=== PATIENT | male | born 1945 | race Caucasian/White ===

== ENCOUNTER → 2020-06-25 10:03 | Outpatient (CLI) | payer MEDICARE, BC, OTHER, SELFPAY ==
--- NOTE | 2020-06-25 10:13 | DI.RAD.S_ITS ---
PROCEDURE: FL BARIUM SWALLOW W SPEECH INDICATIONS: Dysphagia, unspecified COMPARISON: None. TECHNIQUE: Examination was conducted in conjunction with speech pathology per standard protocol. In the lateral projection, filming was performed of the patient swallowing. AP projection filming may also be performed with patient swallowing. COMPARISON: FINDINGS: Function: The oral preparatory phase appears normal, with proper containment. The subsequent oral propulsive phase, pharyngeal phase, and esophageal phase of swallowing also appear normal with all proffered substances. No laryngotracheal penetration or aspiration. No pathologic vallecular pooling. Morphology: There is a relatively prominent cricopharyngeal bar identified at an axial level above that of the C5-6 disc level where relatively prominent anterior projecting endplate osteophytes can be such seen. The cricopharyngeus bar is ventral to the C5 vertebral body, and did not demonstrate delay in transit of a barium tablet passed this area subsequently during the examination.. No cervical esophageal webs. No Zenker's diverticulum. No strictures. IMPRESSION: No penetration or aspiration seen. 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 Relatively prominent anterior projecting osteophytes from the C5-C6 intervertebral endplates. These do not produce a mechanical delay in transit of either fluid or the barium tablet passed these 2 areas into the more inferior esophagus and gastric lumen. Please also refer to the dedicated speech therapy swallowing evaluation report, which will be independently generated. Dictated by: Artie Berry M.D. on 06/25/2020 at 13:23 Approved by: Artie Berry M.D. on 06/25/2020 at 13:26
--- NOTE | 2020-06-25 15:46 | ST.SWALLOW ---
Visit Care Team Role Provider Type Samantha Hou DO Attending Provider Non-Staff Referring Provider Specialty: Family Practice Address: [address] [place] [address], [place], [address] Email: Modified Barium Swallow Study BLENDER Modified Barium Swallow Study Start: 06/25/20 11:09 Freq: Status: Active Protocol: Document 06/25/20 11:09 LUIS ALBERTO (Rec: 06/25/20 11:18 LUIS ALBERTO [id number]) Modified Barium Swallow Study Total Time Visit Start Time 10:30 Visit Stop Time 11:00 Total Visit Minutes 30 Referral Referring Physician Samantha Hou DO Reason for Referral Dysphagia Setting Setting Outpatient Care Patient Information Identification Type Name,ID Card Patient History The pt is a 75-yr-old male with complaints of 5 or more episodes of aspiration of pills and occasionally solids over the last 4 years. In one episode, the pill enlarged and burned in his throat and the pt felt he might . He feels that his swallow function is generally declining. He has noticed increased difficulty if he is talking and so attempts not to do that. He also has employed chin tuck, per MD recommendation, with some success. Subjective Observations The pt arrived on time, self- ambulating, and provided case history. He followed all directions as instructed. Patient Positioning Position View Lat-A/P Imaging Lateral View Textures Administered Trials Presented Thin Liquid via Spoon,Thin Liquid via Cup,[place] Liquid via Spoon,[place] Liquid via Cup,Honey Liquid via Spoon, Dysphagia Blenderized Textures ,Regular Textures Oral Phase Source: MBSIMP (TM) (C) Bolus Specific Scoring Grid Lip Closure No Impairment (WNL) Tongue Control During Bolus Hold No Impairment (WNL) Bolus Transport/Lingual Motion Minimal Impairment A/P Lingual Propulsion Delay Yes: Occ min lingual rocking to initial a/p propulsion Oral Residue WFL Residue Clearing No Impairment (WNL) Nasal Regurgitation No Additional Oral Phase Observations Oral Peripheral Exam: Symmetrical features WNL of strength, coordination and ROM . Pt has full natural dentition in good condition. He reported occasional TMJ popping/discomfort; does not interfere with mastication nor prevent him from eating desired foods. Mildly reduced elevation of velum observed with sustained and staccato phonation. The pt denies nasal regurgitation, and none was observed. Occasional minimal lingual rocking was observed to initiate a/p transport of bolus. Once initiated, transport was rapid and swallow trigger timely. Otherwise, oral prep and swallow phases are WNL. Pharyngeal Phase Source: MBSIMP (TM) (C) Bolus Specific Scoring Grid Delayed Initiation of Pharyngeal Swallow No Soft Palate Elevation WFL Tongue Base Strength/Range of Motion Mild Impairment Residue Along the Tongue Base Yes: Trace Clearance of Residue Along Tongue Base WFL Laryngeal Elevation No Impairment (WNL) Anterior Hyoid Movement No Impairment (WNL) Epiglottic Range of Motion Mild Impairment Vallecular Residue Yes: Trace to mild Clearance of Vallecular Residue Mild Impairment Laryngeal Vestibular Closure No Impairment (WNL) Pharyngeal Stripping Wave Mild Impairment Posterior Pharyngeal Wall Residue No Upper Esophageal Sphincter Opening Minimal Impairment Residue in the Pyriform Sinuses Yes: Trace Clearance of Residue in the Pyriform WFL Sinuses Esophageal Clearance Upright Position No Impairment (WNL) Pharyngoesophageal Backflow Observed No Additional Pharyngeal Phase Observations No laryngeal penetration or tracheal aspiration was observed. Trace to mild residue at vallecula resulted from mild base of tongue and pharyngeal constrictor weakness, as well as reduced epiglottic inversion with liquid boluses (inversion at or just beyond horizontal displacement). With increased bolus bulk, epiglottic inversion and pharyngeal clearance improved. 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 A/P View Textures Administered Trials Presented [place] Liquid via Cup, Dysphagia Blenderized Textures ,Barium Tablet A/P View Observations Pharyngeal Contraction No Impairment (WNL) Esophageal Clearance Upright Position No Impairment (WNL) Clinical Impressions Dysphagia Type Swallow WNL Findings The pt presents with swallow within normal limits for age. Mildly reduced strength of swallow musculature resulted in occasionally slowed a/p propulsion in the oral cavity, incomplete epiglottic inversion with liquids, and trace to mild amounts of pharyngeal residue. 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 The airway was well protected during all trials in this controlled environment. Suspect episodes of aspiration experienced by the pt result from swallow fatigue and/or distractions (e.g., talking during consumption). Recommend the pt minimize distractions with all oral intake, follow general aspiration precautions, and trial breaking/crushing pills and/or using a carrier. If non-pill forms of medication are available (e.g., liquid, gummy, or topical), these may be good options for this patient. If the pt does not experience improved safety after following these recommendations, outpatient therapy may be warranted to target exercises to strengthen swallow musculature. The pt was informed of these recommendations and in agreement with contacting his PCP for referral to outpatient therapy if symptoms do not subside. Rehabilitation Potential Excellent Patient Appropriate for Therapy No Recommendations Diet Liquids Order Thin Diet Order Regular Medication Recommendation Whole in Carrier,Crushed in Carrier Aspiration Precautions Recommended Precautions Upright at 90 Degrees,Small Bites/Sips,Effortful Swallow Treatment Plan Additional Therapy Recommendations Outpatient therapy if above recommendations do not suffice. Compensatory Strategies Recommendations Sitting Upright (90 deg), Double Swallow
--- NOTE | 2020-06-25 15:51 | ST.SWALLOW ---
Visit Care Team Role Provider Type Samantha Hou DO Attending Provider Non-Staff Referring Provider Specialty: Family Practice Address: [address] [place] [address], [place], [address] Email: Modified Barium Swallow Study OPERATIONS AGENT Modified Barium Swallow Study Start: 06/25/20 11:09 Freq: Status: Active Protocol: Document 06/25/20 11:09 LUIS ALBERTO (Rec: 06/25/20 11:18 LUIS ALBERTO [id number]) Modified Barium Swallow Study Total Time Visit Start Time 10:30 Visit Stop Time 11:00 Total Visit Minutes 30 Referral Referring Physician Samantha Hou DO Reason for Referral Dysphagia Setting Setting Outpatient Care Patient Information Identification Type Name,ID Card Patient History The pt is a 75-yr-old male with complaints of 5 or more episodes of aspiration of pills and occasionally solids over the last 4 years. In one episode, the pill enlarged and burned in his throat and the pt felt he might . He feels that his swallow function is generally declining. He has noticed increased difficulty if he is talking and so attempts not to do that. He also has employed chin tuck, per MD recommendation, with some success. Subjective Observations The pt arrived on time, self- ambulating, and provided case history. He followed all directions as instructed. Patient Positioning Position View Lat-A/P Imaging Lateral View Textures Administered Trials Presented Thin Liquid via Spoon,Thin Liquid via Cup,[place] Liquid via Spoon,[place] Liquid via Cup,Honey Liquid via Spoon, Dysphagia Blenderized Textures ,Regular Textures Oral Phase Source: MBSIMP (TM) (C) Bolus Specific Scoring Grid Lip Closure No Impairment (WNL) Tongue Control During Bolus Hold No Impairment (WNL) Bolus Transport/Lingual Motion Minimal Impairment A/P Lingual Propulsion Delay Yes: Occ min lingual rocking to initial a/p propulsion Oral Residue WFL Residue Clearing No Impairment (WNL) Nasal Regurgitation No Additional Oral Phase Observations Oral Peripheral Exam: Symmetrical features WNL of strength, coordination and ROM . Pt has full natural dentition in good condition. He reported occasional TMJ popping/discomfort; does not interfere with mastication nor prevent him from eating desired foods. Mildly reduced elevation of velum observed with sustained and staccato phonation. The pt denies nasal regurgitation, and none was observed. Occasional minimal lingual rocking was observed to initiate a/p transport of bolus. Once initiated, transport was rapid and swallow trigger timely. Otherwise, oral prep and swallow phases are WNL. Pharyngeal Phase Source: MBSIMP (TM) (C) Bolus Specific Scoring Grid Delayed Initiation of Pharyngeal Swallow No Soft Palate Elevation WFL Tongue Base Strength/Range of Motion Mild Impairment Residue Along the Tongue Base Yes: Trace Clearance of Residue Along Tongue Base WFL Laryngeal Elevation No Impairment (WNL) Anterior Hyoid Movement No Impairment (WNL) Epiglottic Range of Motion Mild Impairment Vallecular Residue Yes: Trace to mild Clearance of Vallecular Residue Mild Impairment Laryngeal Vestibular Closure No Impairment (WNL) Pharyngeal Stripping Wave Mild Impairment Posterior Pharyngeal Wall Residue No Upper Esophageal Sphincter Opening Minimal Impairment Residue in the Pyriform Sinuses Yes: Trace Clearance of Residue in the Pyriform WFL Sinuses Esophageal Clearance Upright Position No Impairment (WNL) Pharyngoesophageal Backflow Observed No Additional Pharyngeal Phase Observations No laryngeal penetration or tracheal aspiration was observed. Trace to mild residue at vallecula resulted from mild base of tongue and pharyngeal constrictor weakness, as well as reduced epiglottic inversion with liquid boluses (inversion at or just beyond horizontal displacement). With increased bolus bulk, epiglottic inversion and pharyngeal clearance improved. 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 A/P View Textures Administered Trials Presented [place] Liquid via Cup, Dysphagia Blenderized Textures ,Barium Tablet A/P View Observations Pharyngeal Contraction No Impairment (WNL) Esophageal Clearance Upright Position No Impairment (WNL) Clinical Impressions Dysphagia Type Swallow WNL Findings The pt presents with swallow within normal limits for age. Mildly reduced strength of swallow musculature resulted in occasionally slowed a/p propulsion in the oral cavity, incomplete epiglottic inversion with liquids, and trace to mild amounts of pharyngeal residue. 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 The airway was well protected during all trials in this controlled environment. Suspect episodes of aspiration experienced by the pt result from swallow fatigue and/or distractions (e.g., talking during consumption). Recommend the pt minimize distractions with all oral intake, follow general aspiration precautions , and trial breaking/crushing pills and/or using a carrier. If non-pill forms of medication are available (e.g. , liquid, gummy, or topical), these may be good options for this patient. If the pt does not experience improved safety after following these recommendations, outpatient therapy may be warranted to target exercises to strengthen swallow musculature. The pt was informed of these recommendations and in agreement with contacting his PCP for referral to outpatient therapy if symptoms do not subside. Rehabilitation Potential Excellent Patient Appropriate for Therapy No Recommendations Diet Liquids Order Thin Diet Order Regular Medication Recommendation Whole in Carrier,Crushed in Carrier Aspiration Precautions Recommended Precautions Upright at 90 Degrees,Small Bites/Sips,Effortful Swallow Treatment Plan Additional Therapy Recommendations Outpatient therapy if above recommendations do not suffice . Compensatory Strategies Recommendations Sitting Upright (90 deg), Double Swallow
== END ==
PROVIDERS: Referring Provider Family Medicine; Visit Provider Family Medicine
DX: R13.10 Dysphagia, unspecified (principal)
CPT/HCPCS: 74230; 92611

== ENCOUNTER 2020-09-07 19:57 | Emergency (ER) | payer MEDICARE, BC, OTHER, SELFPAY ==
[2020-09-07 20:02] VITALS: BP 184/109; O2SAT 98
[2020-09-07 20:15] VITALS: BP 184/109; PULSE 85; RESP 18; TEMP 36.7; O2SAT 99; BMI 28.4
[2020-09-07 20:19] LABS: Add Manual Diff / Slide Review NO; Basophils Absolute Auto 100 /uL (0-100); Basophils Percent Auto 0.6 % (0-2); Eosinophils Absolute Auto 100 /uL (0-450); Eosinophils Percent Auto 1.8 % (2-4); Hematocrit 42.4 % (41-53); Lymphocytes Absolute Auto 2000 /uL (1100-4500); Lymphocytes Percent Auto 23.3 % (25-40); Mean Corpuscular Hemoglobin 29.1 PG (26-34); Mean Corpuscular Volume 88.2 fL (80-100); Monocytes Absolute Auto 900 /uL (0-900); Monocytes Percent Auto 10.6 % (3-14); Neutrophils Absolute Auto 5400 /uL (1500-7000); Neutrophils Percent Auto 63.7 % (50-75); Platelet Count 117 X10^3/uL (150-400); Red Blood Cell Count 4.81 X10^6/uL (4.5-5.9); White Blood Cell Count 8.4 X10^3/uL (4.5-11.0)
[2020-09-07 20:23] LABS: INR 1.1 (0.9-1.3); Prothrombin Time 11.8 SECONDS (10.1-12.7)
[2020-09-07 20:26] LABS: PTT Partial Thromboplastin Tim 29 SECONDS (26.4-36.2)
[2020-09-07 20:28] LABS: Alanine Aminotransferase 27 IU/L (<50); Albumin 4.5 g/dL (3.5-5.0); Albumin Globulin Ratio 1.7 (1.0-2.8); Alkaline Phosphatase 57 U/L (38-126); Aspartate Aminotransferase 33 IU/L (17-59); BUN Creatinine Ratio 13.7 (6-22); Blood Urea Nitrogen 16 mg/dL (9-20); Calcium 9.3 mg/dL (8.4-10.2); Carbon Dioxide 29 mmol/L (22-32); Chloride 103 mmol/L (98-107); Estimated Glomerular Filt Rate > 60.0 mL/min (>60); Globulin 2.7 g/dL (1.7-4.1); Glucose 96 mg/dL (80-110); HEMOLYSIS < 15 (0-50); Potassium 3.7 mmol/L (3.4-5.1); Sodium 139 mmol/L (137-145); Total Protein 7.2 g/dL (6.3-8.2)
[2020-09-07] MEDS: PANTOPRAZOLE 40 MG VIAL IV (20:29)
[2020-09-07] MEDS: ONDANSETRON 4 MG/2 ML INJ IV (20:29)
[2020-09-07 20:30] VITALS: BP 148/90; PULSE 83; O2SAT 98
--- NOTE | 2020-09-07 20:54 | ED_ITS ---
HPI - GI Bleed General Chief complaint: GI Bleed Stated complaint: GASTRO HEMORRHAGING Time Seen by Provider: 09/07/20 20:00 Source: patient Mode of arrival: Ambulatory Limitations: no limitations History of Present Illness HPI Narrative: 75M non smoker with benign medical history presents with the chief complaint of painless bright red bleeding per rectum over the day. He had some bright red blood this morning which improved over the course of the day until this evening when he felt some rumbling in his belly and then had another large bright red bowel movement. He is otherwise asymptomatic. He denies any dizziness, weakness or lightheadedness. He denies chest pain or shortness of breath. He denies any fever or chills. He does not take any blood thinners but does take aspirin daily. His last colonoscopy was 9 years ago and he was told he had diverticulosis. He denies any vomiting, liver history or extensive alcohol abuse history. MD complaint: gross hematochezia Onset (ago): hour(s) Severity: moderate Relieving factors: none Exacerbating factors: none Context: other Associated symptoms: denies other symptoms Treatments Prior to Arrival: none Related Data Allergies Allergy/AdvReac Type Severity Reaction Status Date / Time ibuprofen Allergy Verified 09/07/20 20:15 Review of Systems Constitutional Constitutional: Denies chills, Denies fatigue, Denies fever(s), Denies frequent falls, Denies lethargy and Denies weakness Eyes Eyes: Denies change in vision, Denies eye discharge, Denies irritation and Denies loss of vision ENT Ears, Nose, Mouth, and Throat: Denies change in voice, Denies dizziness, Denies neck pain, Denies sore throat and Denies throat swelling Cardiovascular Cardiovascular: Denies chest pain, Denies irregular heart rhythm, Denies lightheadedness, Denies palpitations, Denies dyspnea, Denies dyspnea on exertion and Denies orthopnea Respiratory Respiratory: Denies cough, Denies dyspnea, Denies dyspnea on exertion and Denies wheezing Gastrointestinal Gastrointestinal: Denies abdominal pain, Reports hematochezia, Denies change in bowel habits, Denies diarrhea, Denies nausea and Denies vomiting Musculoskeletal Musculoskeletal: Denies neck pain and Denies numbness Integumentary/Breasts Skin/Breast: Denies pruritus, Denies erythema, Denies rash and Denies wounds Neurologic Neurologic: Denies behavioral changes, Denies confusion, Denies dizziness, Denies frequent falls, Denies loss of vision, Denies numbness and Denies weakness Psychiatric Psychiatric: Denies anxiety, Denies behavioral changes, Denies confusion, Denies depression, Denies homicidal ideation and Denies suicidal ideation Endocrine Endocrine: Denies fatigue, Denies flushing and Denies palpitations Hematologic/Lymphatic Hematologic/Lymphatic: Denies easy bruising Allergic/Immunologic Allergic/Immunologic: Denies urticaria, Denies throat swelling and Denies wheezing Patient History Social History Smoking Status: Never smoker Smoking Status: Never smoker alcohol intake frequency: a few times a month Substance Use Type: does not use Exam Narrative Exam Narrative: GENERAL: [75] year old patient appears stated age. Well- developed patient, in no obvious distress HEAD: Atraumatic. Normocephalic. EYES: Pupils equal round and reactive. Extraocular motions intact. No scleral icterus. No injection or drainage. Conjunctivae are pink ENT: Nose without bleeding, purulent drainage. Throat without erythema, tonsillar hypertrophy or exudate. Airway patent. NECK: Trachea midline. Non tender CARDIOVASCULAR: Regular rate and rhythm without murmurs, gallops, or rubs. RESPIRATORY: Clear to auscultation. Breath sounds equal bilaterally. No wheezes, rales, or rhonchi. GASTROINTESTINAL: Abdomen soft, non-tender, nondistended. RECTAL: small amount of fresh clots on digital rectal. Not visible externaly, no obvious hemorrhoids. EXTREMITIES: No edema or joint tenderness. BACK: Nontender without deformity or crepitance. No flank tenderness. NEURO: AOx3. SKIN: No rash or erythema of visible areas no pallor or diaphoresis Initial Vital Signs Initial Vital Signs: Vital Signs Blood Pressure 184/109 H 09/07/20 20:02 Pulse Oximetry 98 09/07/20 20:02 Course Orders Ordered: ED Orders 09/07/20 20:07 Complete Blood Count AUTO DIFF Stat Comprehensive Metabolic Panel Stat Partial Thromboplastin Time Stat Prothrombin Time INR Stat Type and Screen Stat 09/07/20 21:15 Hemoglobin and Hematocrit Stat Discontinued Medications Ondansetron HCl (Ondansetron 4 Mg/2 Ml Inj) 4 mg IV NOW ONE Stop: 09/07/20 20:15 Last Admin: 09/07/20 20:29 Dose: 4 mg Documented by: AKIN Pantoprazole Sodium (Pantoprazole 40 Mg Vial) 40 mg IV NOW ONE Stop: 09/07/20 20:15 Last Admin: 09/07/20 20:29 Dose: 40 mg Documented by: AKIN Vital Signs Vital signs: Vital Signs - 8 hr 09/07/20 20:02 09/07/20 20:15 09/07/20 20:30 Temperature 98.1 F Pulse Rate 85 83 Respiratory Rate 18 Blood Pressure 184/109 H 184/109 H 148/90 H Pulse Oximetry 98 99 98 09/07/20 21:00 09/07/20 21:30 Temperature Pulse Rate 80 78 Respiratory Rate Blood Pressure 116/74 109/73 Pulse Oximetry 97 99 MDM - GI Bleed Lab Data Result diagrams: 09/07/20 21:15 09/07/20 20:07 Labs: Lab Results 09/07/20 09/07/20 09/07/20 Range/Units 20:07 20:07 20:07 WBC 8.4 (4.5-11.0) X10^3/uL RBC 4.81 (4.5-5.9) X10^6/uL Hgb 14.0 (13.5-17.5) g/dL Hct 42.4 (41-53) % MCV 88.2 (80-100) fL MCH 29.1 (26-34) PG MCHC 33.0 (30-36) % RDW 14.0 (11.6-14.8) % Plt Count 117 L (150-400) X10^3/uL Neut % (Auto) 63.7 (50-75) % Lymph % (Auto) 23.3 L (25-40) % Parker % (Auto) 10.6 (3-14) % Eos % (Auto) 1.8 L (2-4) % Baso % (Auto) 0.6 (0-2) % Neut # (Auto) 5400 (1582-5982) /uL Lymph # (Auto) 2000 (6602-4656) /uL Parker # (Auto) 900 (0-900) /uL Eos # (Auto) 100 (0-450) /uL Baso # (Auto) 100 (0-100) /uL PT 11.8 (10.1-12.7) SECONDS INR 1.1 (0.9-1.3) APTT 29 (26.4-36.2) SECONDS Sodium 139 (137-145) mmol/L Potassium 3.7 (3.4-5.1) mmol/L Chloride 103 (98-107) mmol/L Carbon Dioxide 29 (22-32) mmol/L BUN 16 (9-20) mg/dL Creatinine 1.17 (0.66-1.25) mg/dL Estimated GFR > 60.0 (>60) mL/min BUN/Creatinine Ratio 13.7 (6-22) Glucose 96 (80-110) mg/dL Calcium 9.3 (8.4-10.2) mg/dL Total Bilirubin 1.0 (0.2-1.3) mg/dL AST 33 (17-59) IU/L ALT 27 (<50) IU/L Alkaline Phosphatase 57 (38-126) U/L Total Protein 7.2 (6.3-8.2) g/dL Albumin 4.5 (3.5-5.0) g/dL Globulin 2.7 (1.7-4.1) g/dL Albumin/Globulin Ratio 1.7 (1.0-2.8) Blood Type Antibody Screen 09/07/20 09/07/20 Range/Units 20:07 21:15 WBC (4.5-11.0) X10^3/uL RBC (4.5-5.9) X10^6/uL Hgb 13.4 L (13.5-17.5) g/dL Hct 40.5 L (41-53) % MCV (80-100) fL MCH (26-34) PG MCHC (30-36) % RDW (11.6-14.8) % Plt Count (150-400) X10^3/uL Neut % (Auto) (50-75) % Lymph % (Auto) (25-40) % Parker % (Auto) (3-14) % Eos % (Auto) (2-4) % Baso % (Auto) (0-2) % Neut # (Auto) (2199-8393) /uL Lymph # (Auto) (6862-5913) /uL Parker # (Auto) (0-900) /uL Eos # (Auto) (0-450) /uL Baso # (Auto) (0-100) /uL PT (10.1-12.7) SECONDS INR (0.9-1.3) APTT (26.4-36.2) SECONDS Sodium (137-145) mmol/L Potassium (3.4-5.1) mmol/L Chloride (98-107) mmol/L Carbon Dioxide (22-32) mmol/L BUN (9-20) mg/dL Creatinine (0.66-1.25) mg/dL Estimated GFR (>60) mL/min BUN/Creatinine Ratio (6-22) Glucose (80-110) mg/dL Calcium (8.4-10.2) mg/dL Total Bilirubin (0.2-1.3) mg/dL AST (17-59) IU/L ALT (<50) IU/L Alkaline Phosphatase (38-126) U/L Total Protein (6.3-8.2) g/dL Albumin (3.5-5.0) g/dL Globulin (1.7-4.1) g/dL Albumin/Globulin Ratio (1.0-2.8) Blood Type O Positive Antibody Screen Negative MDM Narrative Medical decision making narrative: 75-year-old male with complaint of painless bright red bleeding had largely resolved prior to arrival. He is encouraged to stop taking his aspirin and follow closely, likely needing a colonoscopy. His exam is reassuring, vital signs remained stable and repeat H&H largely unchanged. Return precautions given and questions answered to his apparent satisfaction Discharge Plan Departure Patient Disposition: Home Clinical Impression: Lower gastrointestinal hemorrhage Instructions: Gastrointestinal Bleeding Activity Restrictions/Additional Instructions: *You have been diagnosed with [lower gastrointestinal bleeding. Your physical exam, blood work, repeat blood work and vital signs are very reassuring.] *What to do: *Please hold your Aspirin for the next few days. Otherwise please continue to take your regular medications as directed. Please consume a clear liquid diet for the next 24-48 hours. *Please follow up with your primary care provider in 2-3 days, call for an appointment. Let them know you were seen in the Emergency Department and that we ask that you be seen in follow up. We will electronically transmit a record of today's note if your PCP is in our system *If you do not have a primary care provider please contact the [facility] Resource line at [phone]. They will ask some questions about your medical history and help get you set up with a doctor in the community. *Return to Emergency Department if you should have any new, worsening or concerning symptoms, such as [fever greater than 101 F, shaking chills, worsening pain, persistent vomiting or other bothersome symptoms] Referrals: Jn Diaz MD [Physician] -
[2020-09-07 21:00] VITALS: BP 116/74; PULSE 80; O2SAT 97
[2020-09-07 21:20] LABS: Hematocrit 40.5 % (41-53); Hemoglobin 13.4 g/dL (13.5-17.5)
[2020-09-07 21:30] VITALS: BP 109/73; PULSE 78; O2SAT 99
== END 2020-09-07 21:57 | disposition home or self-care (01) ==
PROVIDERS: Emergency Provider Emergency Medicine
DX: K92.2 Gastrointestinal hemorrhage, unspecified (principal)
CPT/HCPCS: 36415; 80053; 85014; 85018; 85025; 85610; 85730; 86850; 86900; 86901; 96374; 96375; 99284; C9113; J2405

== ENCOUNTER 2020-09-11 09:29 | Emergency (ER) | payer MEDICARE, BC, OTHER, SELFPAY ==
[2020-09-11] VITALS (10 sets, daily range): BP systolic 141–161; BP diastolic 70–82; PULSE 79–89; RESP 16; TEMP 36.6; O2SAT 92–100; BMI 27.6
--- NOTE | 2020-09-11 10:07 | ED_ITS ---
HPI - General Adult General Chief complaint: GI Bleed Stated complaint: gastrointestinal bleeding, was here last Thursday Time Seen by Provider: 09/11/20 09:39 Source: patient Mode of arrival: Ambulatory Limitations: no limitations History of Present Illness HPI narrative: Patient is a 75-year-old male who comes emergency department today for rectal bleeding. He was seen here in the emergency department for the same symptoms approximately 4 days ago. At that time after labs and vital signs he was discharged home. He has stopped his aspirin. He states that for short period of time his symptoms did improve but did not completely resolve and now he is back to having multiple episodes of watery bright red blood stool. He is not vomiting any blood but is somewhat nauseous. No blood in his urine. He saw his primary doctor yesterday. Had labs drawn but does not know the results of those labs. Did have a referral placed for a colonoscopy but that is not yet been scheduled. He is here in the emergency department today because he states that he generally does not feel very well. Somewhat lightheaded , henrik zapata. Related Data Allergies Allergy/AdvReac Type Severity Reaction Status Date / Time ibuprofen Allergy Verified 09/07/20 20:15 Review of Systems Constitutional Constitutional: Denies fever(s) Cardiovascular Cardiovascular: Denies chest pain and Denies dyspnea Respiratory Respiratory: Denies dyspnea Gastrointestinal Gastrointestinal: Denies abdominal pain, Reports hematochezia, Reports diarrhea and Denies vomiting Genitourinary Genitourinary: Denies hematuria and Denies dysuria Genitourinary: Denies hematuria and Denies dysuria Musculoskeletal Musculoskeletal: Reports system reviewed and no additional complaints, except as documented Integumentary/Breasts Skin/Breast: Reports system reviewed and no additional complaints, except as documented Neurologic Comments: henrik Zapata Hematologic/Lymphatic On Anticoagulants: No Allergic/Immunologic Allergic/Immunologic: Reports system reviewed and no additional complaints, except as documented Patient History Medical History Lower gastrointestinal hemorrhage Social History Smoking Status: Never smoker Smoking Status: Never smoker alcohol intake frequency: a few times a month Substance Use Type: does not use Exam Initial Vital Signs Initial Vital Signs: Vital Signs Blood Pressure 161/82 H 09/11/20 09:40 Const General: cooperative, comfortable and well developed Limitations: mental status not altered HENMT Head: normal to inspection and normocephalic Resp Effort & Inspection: normal respiratory effort Auscultation: clear to auscultation bilaterally Cardio Rate: regular rate Rhythm: regular rhythm GI Inspection: non-distended Palpation: soft and No tender Skin Lesions: no lesions Rashes: no rashes Neuro General: patient alert, patient awake and patient oriented x3 Cognition: normal cognition Speech: speech normal Extrem General: normal to inspection and capillary refill normal Psych Appearance: grossly normal and well kempt Course Orders Ordered: ED Orders 09/11/20 10:08 CT abdomen pelvis w con Stat 09/11/20 10:10 Basic Metabolic Panel Stat Complete Blood Count AUTO DIFF Stat Type and Screen Stat 09/11/20 12:04 Hemoglobin and Hematocrit Stat Discontinued Medications Trimethoprim/Sulfamethoxazole (Trimeth/Sulfa 160/800 (Ds) Tablet) 1 tab PO NOW ONE Stop: 09/11/20 11:07 Last Admin: 09/11/20 11:24 Dose: Not Given Documented by: CTR.BRIELLE Vital Signs Vital signs: Vital Signs - 8 hr 09/11/20 09:40 09/11/20 09:41 09/11/20 09:45 Temperature 97.8 F Pulse Rate 88 83 Respiratory Rate 16 Blood Pressure 161/82 H 161/82 H Pulse Oximetry 99 95 09/11/20 10:00 09/11/20 10:30 09/11/20 10:48 Temperature Pulse Rate 87 80 83 Respiratory Rate Blood Pressure 158/79 H Pulse Oximetry 100 100 98 Medical Decision Making Lab Data Lab results reviewed: Yes I reviewed the patient's lab results. Result diagrams: 09/11/20 12:04 09/11/20 10:10 Labs: Lab Results 09/11/20 09/11/20 09/11/20 Range/Units 10:10 10:10 10:10 WBC 6.9 (4.5-11.0) X10^3/uL RBC 3.65 L (4.5-5.9) X10^6/uL Hgb 10.8 L (13.5-17.5) g/dL Hct 32.0 L (41-53) % MCV 87.6 (80-100) fL MCH 29.6 (26-34) PG MCHC 33.8 (30-36) % RDW 13.6 (11.6-14.8) % Plt Count 116 L (150-400) X10^3/uL Neut % (Auto) 73.6 (50-75) % Lymph % (Auto) 13.3 L (25-40) % [place] % (Auto) 11.4 (3-14) % Eos % (Auto) 1.2 L (2-4) % Baso % (Auto) 0.5 (0-2) % Neut # (Auto) 5100 (8763-5674) /uL Lymph # (Auto) 900 L (3012-1894) /uL [place] # (Auto) 800 (0-900) /uL Eos # (Auto) 100 (0-450) /uL Baso # (Auto) 0 (0-100) /uL Sodium 133 L (137-145) mmol/L Potassium 3.6 (3.4-5.1) mmol/L Chloride 101 (98-107) mmol/L Carbon Dioxide 25 (22-32) mmol/L BUN 23 H (9-20) mg/dL Creatinine 1.02 (0.66-1.25) mg/dL Estimated GFR > 60.0 (>60) mL/min BUN/Creatinine Ratio 22.5 H (6-22) Glucose 140 H (80-110) mg/dL Calcium 8.9 (8.4-10.2) mg/dL Blood Type O Positive Antibody Screen Negative 09/11/20 Range/Units 12:04 WBC (4.5-11.0) X10^3/uL RBC (4.5-5.9) X10^6/uL Hgb 11.1 L (13.5-17.5) g/dL Hct 32.9 L (41-53) % MCV (80-100) fL MCH (26-34) PG MCHC (30-36) % RDW (11.6-14.8) % Plt Count (150-400) X10^3/uL Neut % (Auto) (50-75) % Lymph % (Auto) (25-40) % [place] % (Auto) (3-14) % Eos % (Auto) (2-4) % Baso % (Auto) (0-2) % Neut # (Auto) (4825-2008) /uL Lymph # (Auto) (1483-3553) /uL [place] # (Auto) (0-900) /uL Eos # (Auto) (0-450) /uL Baso # (Auto) (0-100) /uL Sodium (137-145) mmol/L Potassium (3.4-5.1) mmol/L Chloride (98-107) mmol/L Carbon Dioxide (22-32) mmol/L BUN (9-20) mg/dL Creatinine (0.66-1.25) mg/dL Estimated GFR (>60) mL/min BUN/Creatinine Ratio (6-22) Glucose (80-110) mg/dL Calcium (8.4-10.2) mg/dL Blood Type Antibody Screen Imaging Data CT scan - abdomen/pelvis: Radiologist's Impression: [address] [id number] Scan ReportSigned Patient: Yao Bolivar R#: [id number]: 8Acct:[id number]/Sex: 75 / MDate of Service: 09/11/20Loc: EDAccession Number: [id number] Procedure: CT abdomen pelvis w con Ordering Provider: Kashif Lowery D.O. PROCEDURE: CT ABDOMEN PELVIS W CON INDICATIONS: GI bleed TECHNIQUE: After the administration of intravenous contrast, 5 mm thick sections acquired from the diaphragm to the symphysis. 5 mm coronal and sagittal reformats were acquired. For radiation dose reduction, the following was used: automated exposure control, adjustment of mA and/or kV according to patient size. COMPARISON: None. FINDINGS: Image quality: Excellent. ABDOMEN: Lung bases: Lung bases are clear. Heart size is normal. Solid organs: Liver is normal in size and enhancement. Gallbladder appears normal. Biliary system is non dilated. Pancreas enhances normally. Spleen is normal in size and enhancement. No adrenal nodules. Kidneys demonstrate normal size and enhancement, without hydronephrosis. Peritoneum and bowel: Bowel loops demonstrate normal wall thickness and caliber. No free fluid or air. Nodes and vessels: No retroperitoneal or mesenteric adenopathy by size criteria. Aorta and inferior vena cava are normal in size. Miscellaneous: No ventral hernias. PELVIS: Genitourinary: Bladder wall thickness is normal. Miscellaneous: No inguinal hernias or adenopathy. Prominent sigmoid diverticulosis, but there is no acute diverticulitis. Bones: No suspicious bony lesions. No vertebral body compression fractures. IMPRESSION: A mass lesion involving the colon is not found. There is relatively prominent sigmoid diverticulosis but without acute diverticulitis. A source of GI bleeding is not identified by CT scanning. Dictated by: Artie Berry M.D. on 09/11/2020 at 10:53 Approved by: Artie Berry M.D. on 09/11/2020 at 10:54 MDM Narrative Medical decision making narrative: Patient had 1 bowel movement here of gelatinous bright red blood. He does have a soft abdomen. Not tachycardic. Not hypotensive. His hemoglobin hematocrit today are slightly lower than the last time he was here however it is unchanged after 2 hours here in the emergency department. His CT scan does not show any overt signs of etiology of the bleeding. I did discuss the case with Dr. Redd with General surgery who stated that the patient could continue to follow-up as an outpatient for colonoscopy. I did discuss this with the patient. He will continue to hold on taking his aspirin. He was given return precautions. He expressed understanding agreement. Discharge Plan Departure Patient Disposition: Home Clinical Impression: Lower gastrointestinal hemorrhage Instructions: Gastrointestinal Bleeding Activity Restrictions/Additional Instructions: I recommend that you continue on holding on your aspirin. You can contact the [facility] at [phone] for follow-up. Recommend that you return to the emergency department for any chest pain, shortness of breath, lightheadedness or any other new or worsening symptoms
[2020-09-11 10:19] LABS: Add Manual Diff / Slide Review NO; Basophils Absolute Auto 0 /uL (0-100); Basophils Percent Auto 0.5 % (0-2); Eosinophils Absolute Auto 100 /uL (0-450); Eosinophils Percent Auto 1.2 % (2-4); Hemoglobin 10.8 g/dL (13.5-17.5); Lymphocytes Absolute Auto 900 /uL (1100-4500); Lymphocytes Percent Auto 13.3 % (25-40); Mean Corpuscular HGB Conc 33.8 % (30-36); Mean Corpuscular Hemoglobin 29.6 PG (26-34); Mean Corpuscular Volume 87.6 fL (80-100); Monocytes Absolute Auto 800 /uL (0-900); Monocytes Percent Auto 11.4 % (3-14); Neutrophils Absolute Auto 5100 /uL (1500-7000); Neutrophils Percent Auto 73.6 % (50-75); Platelet Count 116 X10^3/uL (150-400); Red Blood Cell Count 3.65 X10^6/uL (4.5-5.9); Red Cell Distribution Width 13.6 % (11.6-14.8); White Blood Cell Count 6.9 X10^3/uL (4.5-11.0)
[2020-09-11 10:27] LABS: BUN Creatinine Ratio 22.5 (6-22); Blood Urea Nitrogen 23 mg/dL (9-20); Calcium 8.9 mg/dL (8.4-10.2); Carbon Dioxide 25 mmol/L (22-32); Chloride 101 mmol/L (98-107); Estimated Glomerular Filt Rate > 60.0 mL/min (>60); Glucose 140 mg/dL (80-110); HEMOLYSIS < 15 (0-50); Potassium 3.6 mmol/L (3.4-5.1); Sodium 133 mmol/L (137-145)
[2020-09-11 12:10] LABS: Hematocrit 32.9 % (41-53); Hemoglobin 11.1 g/dL (13.5-17.5)
== END 2020-09-11 12:36 | disposition home or self-care (01) ==
PROVIDERS: Emergency Provider Emergency Medicine
DX: K92.2 Gastrointestinal hemorrhage, unspecified (principal); R19.7 Diarrhea, unspecified
CPT/HCPCS: 36415; 74177; 80048; 85014; 85018; 85025; 86850; 86900; 86901; 99283; 99284

== ENCOUNTER → 2020-09-12 12:31 | Outpatient (CLI) | payer MEDICARE, BC, OTHER, SELFPAY ==
[2020-09-12 12:47] LABS: Add Manual Diff / Slide Review NO; Basophils Absolute Auto 100 /uL (0-100); Basophils Percent Auto 0.8 % (0-2); Eosinophils Absolute Auto 100 /uL (0-450); Eosinophils Percent Auto 1.6 % (2-4); Hematocrit 31.5 % (41-53); Hemoglobin 10.7 g/dL (13.5-17.5); Lymphocytes Absolute Auto 1400 /uL (1100-4500); Lymphocytes Percent Auto 19.5 % (25-40); Mean Corpuscular HGB Conc 34.1 % (30-36); Mean Corpuscular Hemoglobin 29.8 PG (26-34); Mean Corpuscular Volume 87.6 fL (80-100); Monocytes Absolute Auto 800 /uL (0-900); Monocytes Percent Auto 11.7 % (3-14); Neutrophils Absolute Auto 4700 /uL (1500-7000); Neutrophils Percent Auto 66.4 % (50-75); Platelet Count 142 X10^3/uL (150-400); Red Blood Cell Count 3.59 X10^6/uL (4.5-5.9); Red Cell Distribution Width 13.9 % (11.6-14.8); White Blood Cell Count 7.1 X10^3/uL (4.5-11.0)
== END ==
PROVIDERS: PCP Family Medicine; Referring Provider Surgery; Visit Provider Surgery
DX: K92.2 Gastrointestinal hemorrhage, unspecified (principal); K57.90 Diverticulosis of intestine, part unspecified, without perforation or abscess without bleeding; K21.9 Gastro-esophageal reflux disease without esophagitis; K44.9 Diaphragmatic hernia without obstruction or gangrene; K27.9 Peptic ulcer, site unspecified, unspecified as acute or chronic, without hemorrhage or perforation; F41.8 Other specified anxiety disorders
CPT/HCPCS: 36415; 85025; 99214

== ENCOUNTER → 2020-09-14 09:32 | Outpatient (CLI) | payer MEDICARE, BC, OTHER, SELFPAY ==
[2020-09-14 11:23] LABS: COVID19 -Nasal RAPID Negative (Negative)
== END ==
PROVIDERS: PCP Family Medicine; Visit Provider Surgery
DX: Z01.812 Encounter for preprocedural laboratory examination (principal); Z20.822 Contact with and (suspected) exposure to COVID-19
CPT/HCPCS: 87635; C9803

== ENCOUNTER 2020-09-17 12:28 | Day surgery (SDC) | payer MEDICARE, BC, OTHER, SELFPAY ==
--- NOTE | 2020-09-17 | PATH_ITS ---
[facility] Accession Number: [id number] . 01 Material submitted: . esophagus - DISTAL ESOPHAGUS . 02 Diagnosis: Distal Esophagus, Biopsy: Squamous mucosa with no diagnostic abnormality. Intraepithelial eosinophils are not increased. Negative for dysplasia and malignancy. V 09/19/2020 1222 Local . 02 Electronically signed: . Adelaida Fregoso MD, Pathologist NPI- [id number] . 01 Gross description: . DISTAL ESOPHAGUS: Received in formalin is 2 fragment(s) of johnson, soft tissue measuring 0.4 x 0.2 x 0.1 cm to 0.2 x 0.1 x 0.1 cm submitted entirely in 1 cassette(s) /ALEX 09/18/2020 0551 Local . 02 Pathologist provided ICD-10: Z87.19 . 02 CPT . 060696 Performed at: 01 [facility] [address] [facility], [place], [place] [id number] MD Demetrius Herring MD Phone: [phone] Performed at: [facility] [address] [place], [place] [id number] MD Adelaida Fregoso MD Phone: [phone]
[2020-09-17 13:35] VITALS: BP 148/89; PULSE 82; RESP 18; TEMP 36.7; O2SAT 97; BMI 27.3
[2020-09-17 13:37] LABS: Hematocrit 27.9 % (41-53); Hemoglobin 9.5 g/dL (13.5-17.5); Mean Corpuscular Hemoglobin 29.4 PG (26-34); Mean Corpuscular Volume 86.5 fL (80-100); Platelet Count 164 X10^3/uL (150-400); Red Blood Cell Count 3.22 X10^6/uL (4.5-5.9); White Blood Cell Count 4.4 X10^3/uL (4.5-11.0)
[2020-09-17] MEDS: SODIUM CHLORIDE 0.9% 1,000 ML 200 ML IV (13:50)
--- NOTE | 2020-09-17 13:50 | PM.PREOP ---
Pre-operative Note COVID-19 COVID-19 status: Negative Result date/Date tested (Pos, Neg/Pending): 09/14/20 Interval Note History & Physical reviewed/Exam performed by Physician: Yes Changes to H&P: Yes H&P completed within 30 days and has changed as indicated here:: Hemoglobin is now 9.5 down from 10.7 5 days ago.
--- NOTE | 2020-09-17 14:08 | PM.OP.ENDO ---
Operative Date/Time/Diagnoses Date of procedure: 09/17/20 Time of procedure: 14:08 Pre-op diagnosis: GI bleed Procedure & Clinicians Study performed: Esophagogastroduodenoscopy Biopsies of distal esophagus Colonoscopy Same procedure as scheduled: Yes Indications: Significant GI bleed with a hemoglobin drop of 5 g in the last 10 days. The anesthesiologist was consulted to provide sedation and monitored anesthesia care for this procedure given the patient's medical fragility in the setting of a significant GI bleed, and the possibility of a prolonged procedure. Surgeon: Shae Redd Procedure Notes SCOAP/Timeout: Performed Procedure in detail: The patient was brought to the room and placed in left lateral decubitus position with all bony prominences padded. A bite block was positioned in the patient's mouth to protect the lips, teeth, and tongue for the procedure. A time-out was performed and then the patient was given deep sedation with propofol by Dr. White. Once adequately sedated, the procedure was begun. The lubricated gastroscope was passed through the bite block and across the tongue and into the esophagus without incident. A tubular view of the esophagus was maintained as the scope was advanced through the esophagus and into the stomach. The scope was advanced through the stomach and to the pylorus. The scope was gently popped through the pylorus and into the duodenal bulb. The scope was flexed and advanced into the second and third portions of the duodenum. The duodenum and duodenal bulb appeared normal with no evidence of peptic ulcer or source of bleeding. The scope was withdrawn into the stomach. The stomach revealed very mild endoscopic gastritis, with no evidence of peptic ulcer or source of bleeding. The scope was retroflexed and the gastric cardia was examined. The hiatus appeared normal, with no significant evidence of a hiatal hernia, or any gaping around the scope.. The scope was then straightened, and withdrawn into the esophagus. The Z-line was broken, but no significant tongues of salmon-colored mucosa came up into the esophagus.. The distal esophagus appeared otherwise normal. The scope was then withdrawn through the esophagus with a tubular view. The scope was then withdrawn from the patient and attention was turned towards the colonoscopy portion of the procedure. Once adequately sedated, the procedure was begun. A rectal exam was performed revealing no abnormalities. The colonoscope was then introduced to the rectum and advanced to the cecum in the usual fashion. The cecum was identified by the appendiceal orifice, the mucosal tri-fold, and the ileocecal valve. The scope was then retracted while rotating side to side and examining each mucosal fold. Severe diverticulosis is seen throughout the colon, most severe in the sigmoid colon, with many false passages and very deep, large mouthed diverticula. A small benign-appearing polyp was seen at 80 cm, and a small benign-appearing polyp was seen at 20 cm. These were not removed. At the conclusion of the procedure retroflexion was performed and small grade 1-2 internal hemorrhoids without stigmata of bleeding were seen. The scope was then withdrawn from the rectum the procedure was concluded. The patient tolerated the procedure well and was transferred to the PACU in stable condition. Findings: diverticulosis and polyp Impression: Most likely source of bleeding is the colonic diverticula. There were quite large and numerous. We recommend fiber, and a bleeding study such as a nuclear medicine bleeding scan or angiography next time the patient has a significant episode of rectal bleeding. Post-procedure Recommendations: Colonscopy in 5 years, High fiber diet (Use a fiber supplement such as Metamucil to prevent the formation of more diverticula and reduce the incidence of diverticulitis.), Will call with biopsy results (Any further recommendations will be mailed to the patient once we receive the biopsy results.) and Other recommendation (If recurrent bleeding happens, you will need a bleeding scan or angiography to identify the source of bleeding.) Plan for aftercare: Follow-up with primary doctor, consider angiography or bleeding scan on the next episode of rectal bleeding. Follow up: as needed Disposition: PACU
[2020-09-17 14:36] VITALS: BP 86/62; PULSE 76; RESP 16; TEMP 36.3; O2SAT 94
[2020-09-17 14:40] VITALS: BP 75/57; PULSE 73; RESP 15; O2SAT 94
[2020-09-17 14:46] VITALS: BP 91/56; PULSE 70; RESP 17; O2SAT 95
[2020-09-17 15:02] VITALS: BP 122/70; PULSE 66; RESP 8; O2SAT 97
[2020-09-17 15:24] VITALS: BP 135/81; PULSE 60; RESP 15; TEMP 36.4; O2SAT 99
== END 2020-09-17 15:52 | disposition home or self-care (01) ==
PROVIDERS: PCP Family Medicine; Referring Provider Surgery; Visit Provider Surgery
PROC: 0DJ08ZZ Inspection of Upper Intestinal Tract, Via Natural or Artificial Opening Endoscopic (ICD-10-PCS; CPT 43235; principal; 2020-09-17 13:45)
PROC: 0DJD8ZZ Inspection of Lower Intestinal Tract, Via Natural or Artificial Opening Endoscopic (ICD-10-PCS; CPT 45378; 2020-09-17 13:45)
DX: K92.2 Gastrointestinal hemorrhage, unspecified (principal); Z87.11 Personal history of peptic ulcer disease; K21.9 Gastro-esophageal reflux disease without esophagitis; E03.9 Hypothyroidism, unspecified; K64.0 First degree hemorrhoids; K57.30 Diverticulosis of large intestine without perforation or abscess without bleeding; K29.70 Gastritis, unspecified, without bleeding
CPT/HCPCS: 43239; 45378; 36415; 85027; J2704

== ENCOUNTER → 2020-11-26 10:37 | Outpatient (CLI) | payer MEDICARE, BC, OTHER, SELFPAY ==
[2020-11-26 12:16] LABS: Hematocrit 36.6 % (41-53); Hemoglobin 11.5 g/dL (13.5-17.5); Mean Corpuscular HGB Conc 31.4 % (30-36); Mean Corpuscular Hemoglobin 23.1 PG (26-34); Mean Corpuscular Volume 73.7 fL (80-100); Neutrophils Percent Auto 54.6 % (50-75); Platelet Count 125 X10^3/uL (150-400); Red Blood Cell Count 4.97 X10^6/uL (4.5-5.9); Red Cell Distribution Width 24.1 % (11.6-14.8); White Blood Cell Count 4.7 X10^3/uL (4.5-11.0)
[2020-11-26 12:17] LABS: Add Manual Diff / Slide Review NO; Basophils Absolute Auto 0 /uL (0-100); Basophils Percent Auto 0.8 % (0-2); Eosinophils Absolute Auto 100 /uL (0-450); Eosinophils Percent Auto 2.2 % (2-4); Lymphocytes Absolute Auto 1400 /uL (1100-4500); Monocytes Absolute Auto 600 /uL (0-900); Monocytes Percent Auto 13.4 % (3-14); Neutrophils Absolute Auto 2600 /uL (1500-7000)
[2020-11-26 12:39] LABS: Anisocytosis 2+
[2020-11-27 14:36] LABS: Tissue Transglutaminase IgA <2 U/mL (0-3)
[2020-11-27 20:50] LABS: t-Transglutaminase IgA <2 U/mL (0-3)
== END ==
PROVIDERS: PCP Family Medicine; Referring Provider Internal Medicine Gastroenterology; Visit Provider Internal Medicine Gastroenterology
DX: D50.9 Iron deficiency anemia, unspecified (principal)
CPT/HCPCS: 36415; 83516; 85025

== ENCOUNTER → 2021-07-19 09:59 | Outpatient (CLI) | payer MEDICARE, BC, OTHER, SELFPAY ==
[2021-07-19 11:38] LABS: COVID19 -Nasal RAPID Negative (Negative)
== END ==
PROVIDERS: PCP Internal Medicine; Visit Provider Family Medicine Sleep Medicine
DX: Z20.822 Contact with and (suspected) exposure to COVID-19 (principal)
CPT/HCPCS: 87635; C9803

== ENCOUNTER 2021-07-22 08:13 | Day surgery (SDC) | payer MEDICARE, BC, OTHER, SELFPAY ==
--- NOTE | 2021-07-22 | PATH_ITS ---
[facility] Accession Number: [id number] . 01 Material submitted: . PART A: colon - ASCENDING COLON POLYP PART B: colon - TRANSVERSE COLON POLYP . 02 Diagnosis: A. Ascending Colon Polyp, Biopsy: Tubular adenoma. . B. Transverse Colon Polyp, Biopsy: Tubular adenoma. MRV 07/24/2021 1024 Local . 02 Electronically signed: . Barry Pierre MD, PhD, Pathologist NPI- [id number] . 01 Gross description: . Part A: ASCENDING COLON POLYP: Received in formalin is 1 fragment(s) of johnson, soft tissue measuring 0.2 x 0.2 x 0.2 cm submitted entirely in 1 cassette(s) Part B: TRANSVERSE COLON POLYP: Received in formalin is 1 fragment(s) of johnson, soft tissue measuring 0.4 x 0.3 x 0.3 cm submitted entirely in 1 cassette(s) /LEXX 07/23/2021 2020 Local . 02 Pathologist provided ICD-10: D12.2, D12.3 . 02 CPT . 012971, 050791 Specimen Comment: A courtesy copy of this report has been sent to [phone] Performed at: 01 [facility] [address] [facility], [place], [place] [id number] MD Demetrius Herring MD Phone: [phone] Performed at: 02 [facility] [address] [place], [place] [id number] MD Adelaida Fregoso MD Phone: [phone]
[2021-07-22 08:45] VITALS: BP 142/90; PULSE 71; RESP 15; TEMP 36.7; O2SAT 97; BMI 28.1
[2021-07-22] MEDS: SODIUM CHLORIDE 0.9% 1,000 ML 84 ML IV (08:56)
--- NOTE | 2021-07-22 09:38 | PM.HP.1 ---
History of Present Illness History of Present Illness Date Patient Seen: 07/22/21 Time Patient Seen: 09:38 Chief complaint: DX COLONOSCOPY W/POSS BX Narrative: A small benign-appearing polyp was seen at 20 cm and 80 cm from the anal verge at colonoscopy in September of 2020. He is here for repeat today. I reviewed my last note from February 18, 2021. No changes. 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 Fatty liver Foot pain Fractures (~2014) Gout (~2009) Hearing loss (~2019) Hemorrhoid (~2020) HTN (hypertension) (~1989) Hyperlipidemia (~2009) Hypogonadism Hypothyroidism (~1989) Lower gastrointestinal hemorrhage Measles (~1952) Mumps (~1952) Osteoarthritis (~2018) Rheumatoid arthritis Shoulder pain (~2013) Skin cancer (~2014) Vision disorder Surgical History Anesthesia History of endoscopy Hx of tonsillectomy (~1952) Hx of vasectomy (~1982) Family & Social History Family History Father Hypertension Heart disease Stroke Skin cancer Grandmother Diabetes mellitus Mother Alzheimer's disease Diverticulosis Sister GI disease Diverticulosis Sister Diabetes mellitus Grandfather Heart disease Grandmother Diabetes mellitus Grandfather Cancer Grandmother Stroke Social History: household members spouse Tobacco & Substance use: Smoking Status Never smoker alcohol intake current alcohol intake frequency a few times a month Substance Use Type does not use Meds Home Medications and Allergies Home Medications Medication Instructions Recorded Confirmed Type allopurinol 100 mg tablet 200 mg PO BID 09/12/20 07/22/21 History diazepam 2 mg tablet (Valium) 2 mg PO .prior to procedure PRN #1 09/12/20 07/22/21 Rx tab esomeprazole magnesium 20 mg 20 mg PO DAILY 09/12/20 07/22/21 History capsule,delayed release (Nexium) levothyroxine 125 mcg tablet 125 mcg PO DAILY 09/12/20 07/22/21 History (Synthroid) lisinopril 10 mg tablet 10 mg PO DAILY 09/12/20 07/22/21 History rosuvastatin 5 mg tablet (Crestor) 5 mg PO DAILY 09/12/20 09/17/20 History sodium,potassium,mag sulfates 17.5 177 ml PO DAILY #354 ml 09/12/20 09/17/20 Rx gram-3.13 gram-1.6 gram oral soln Allergies Allergy/AdvReac Type Severity Reaction Status Date / Time ibuprofen Allergy Verified 07/22/21 08:54 Review of Systems Review of Systems ROS: Yes All systems reviewed with the patient and are negative except as otherwise documented Exam Vital Signs (past 8 hours): - 07/22/21 08:45 Temperature 98.1 F Pulse Rate 71 Respiratory Rate 15 Blood Pressure 142/90 H Pulse Oximetry 97 Oxygen Delivery Method Room Air Const General: cooperative and comfortable Orientation: alert HENMT Head: normocephalic Ears: external ears normal Nose: external nose normal Face and sinus: normal facial exam Mouth: oral mucosae normal Eyes General: appearance normal, both eyes and all related structures Neck Neck: normal visual inspection Chest Chest: normal inspection of the chest Resp Effort & Inspection: normal respiratory effort Cardio Rate: regular rate GI Inspection: normal to inspection Skin General: no rashes or lesions noted and No jaundice Neuro General: patient alert and moves all extremities Cognition: normal cognition Speech: speech normal Extrem General: no pedal edema Psych Appearance: grossly normal Assessment & Plan Assessment & Plan narrative: 76-year-old male with a personal history of colon polyps. Colonoscopy is planned for today. Time Spent With Patient Critical Care time: I spent a total of [] minutes of critical care time on this patient's care today; this time is exclusive of procedural time.
--- NOTE | 2021-07-22 09:40 | PM.PREOP ---
Pre-operative Note COVID-19 COVID-19 status: Negative Result date/Date tested (Pos, Neg/Pending): 07/19/21 Criteria for continued procedure: Possibility delay results in more complex future surgery or treatment Interval Note History & Physical reviewed/Exam performed by Physician: Yes Changes to H&P: No ASA Class (for procedural sedation): II
--- NOTE | 2021-07-22 10:57 | P.OP.COLON_ITS ---
Operative Date/Time/Diagnoses Date of procedure: 07/22/21 Time of procedure: 10:57 Pre-op diagnosis: Personal history of colon polyps Post-op diagnosis: same Procedure & Clinicians Study performed: Colonoscopy with hot snare polypectomy Same procedure as scheduled: Yes Indications: Personal history of colon polyps Surgeon: Mook Hickey Procedure Notes SCOAP/Timeout: Done Procedure in detail: After the risks and benefits were explained, written and verbal informed consent was obtained. The patient was brought into the procedure room and placed into the left lateral decubitus position. Please see nurse technical operations vice president note for sedation details. Digital rectal examination was accomplished. The scope was introduced into the patient and advanced under direct visualization to the cecum as identified by the appendiceal orifice and ileocecal valve. The scope was slowly withdrawn to carefully examine the mucosa for any defects or lesions. Comprehensive imaging was accomplished throughout the rectum including the dentate line. The colon was decompressed, the scope was then removed from the patient who tolerated the procedure well. Adult colonoscope Bowel prep adequate Scope withdrawal time: 18 minutes Sedation minutes: 29 Complications: none Impression: Patient had grade 3 non thrombosed nonbleeding hemorrhoids. He had extensive diverticulosis extending from sigmoid all the way into ascending. There was a diminutive 3 mm polyp removed from the ascending colon cold snared. In the transverse around 80 cm from the anal verge there was a sessile 6-7 mm polyp removed with hot snare. At around 30 cm from the anal verge I saw a polyp but was quite concerned that this was actually and courtney id diverticulum and so we left this alone. Maximum dimension was perhaps 5-6 mm. Endoscopic diagnosis 1. Extensive diverticulosis 2. Grade 3 hemorrhoids 3. Colon polyps Post-procedure Plan for aftercare: 1. Await histopathology 2. Repeat colonoscopy in 3 years for early surveillance especially in light of the photographed small probably courtney and diverticulum at 30 cm from the anal verge. Disposition: PACU
[2021-07-22 11:00] VITALS: BP 96/68; PULSE 76; RESP 20; TEMP 36.4; O2SAT 97
[2021-07-22 11:05] VITALS: BP 100/67; PULSE 77; RESP 14; O2SAT 100
[2021-07-22 11:10] VITALS: BP 105/67; PULSE 63; RESP 16; O2SAT 97
[2021-07-22 11:15] VITALS: BP 112/68; PULSE 61; RESP 12; O2SAT 98
[2021-07-22 11:17] VITALS: BP 112/68; PULSE 61; RESP 12; O2SAT 98
== END 2021-07-22 11:30 | disposition home or self-care (01) ==
PROVIDERS: PCP Internal Medicine; Referring Provider Internal Medicine Gastroenterology; Visit Provider Internal Medicine Gastroenterology
PROC: 0DJD8ZZ Inspection of Lower Intestinal Tract, Via Natural or Artificial Opening Endoscopic (ICD-10-PCS; CPT 45378; principal; 2021-07-22 09:30)
DX: D12.2 Benign neoplasm of ascending colon (principal); Z12.11 Encounter for screening for malignant neoplasm of colon; D12.3 Benign neoplasm of transverse colon; K57.30 Diverticulosis of large intestine without perforation or abscess without bleeding; K64.2 Third degree hemorrhoids; Z86.010 Personal history of colon polyps
CPT/HCPCS: 45385; J2704

== ENCOUNTER → 2021-07-25 11:04 | Outpatient (CLI) | payer MEDICARE, BC, OTHER, SELFPAY ==
--- NOTE | 2021-07-25 | DI.MRI.S_ITS ---
PROCEDURE: MR LUMBAR SPINE WO CON INDICATIONS: Collapsed vertebra, not elsewhere classified, sacr TECHNIQUE: Noncontrast sagittal T1 spin echo and T2 fast echo, sagittal STIR, and T2 fast spin echo through the lumbar spine. In cases with scoliosis, additional coronal T2 fast spin echo may be performed. COMPARISON: None. FINDINGS: Image quality: Excellent. Alignment and Curvature: There is mild convex left scoliosis of the lumbar spine. There is 2-3 millimeters of L1-L2 and L2-L3 retrolisthesis. There is approximately 3 millimeters of L4-L5 anterolisthesis. Bone Marrow: Marrow is of normal overall signal. Chronic appearing L1 compression deformity which results in approximately 30% loss of normal anterior vertebral body height. No kyphosis or retropulsed fragments associated with the L1 chronic compression fracture. No acute vertebral body compression fractures. Spinal Cord: Conus medullaris terminates at the L1-2 disc level. Visualized cord demonstrates normal signal and size. Paraspinous Soft Tissues: No paravertebral masses. T12-L1: Loss of disc signal and height. Mild, diffuse disc bulge. No central stenosis. No neural foraminal narrowing. No neural compression. L1-L2: Loss of disc signal and height. Mild to moderate diffuse disc bulge. Mild narrowing of the central canal. Mild bilateral neural foraminal narrowing. No neural compression. L2-L3: Loss of disc signal. Mild, diffuse disc bulge. Mild bilateral facet hypertrophy. Mild narrowing of the central canal. Mild bilateral neural foraminal narrowing. No neural compression. L3-L4: Loss of disc signal. Mild, diffuse disc bulge. Moderate bilateral facet hypertrophy. Moderate narrowing of the central canal. Mild bilateral neural foraminal narrowing. No neural compression. L4-L5: Loss of disc signal and slight loss of disc height. Moderate, diffuse disc bulge. Small right central disc extrusion which extends superiorly along the posterior margin of the L4 vertebral body to a infra pedicular location. Extruded disc material impinges upon the right L4 nerve root. Severe bilateral facet hypertrophy. Moderate to severe narrowing of the central canal. Severe right and moderate left neural foraminal narrowing with compression of the exiting right L4 nerve root. L5-S1: Loss of disc signal. Mild, diffuse disc bulge. Mild right moderate left facet hypertrophy. No central stenosis. Mild right and severe left neural foraminal narrowing with compression of the exiting left L5 nerve root. IMPRESSION: 1. Multilevel degenerative disc disease. 2. Multilevel facet arthropathy. 3. Moderate to severe L4-L5 central canal narrowing. 4. L4-L5 small right central disc extrusion which impinges upon the right L4 nerve root. 5. Severe right L4-L5 neural foraminal narrowing with compression of the exiting right L4 nerve root. Severe left L5-S1 neural foraminal narrowing with compression of the exiting left L5 nerve root. 6. Mild convex left scoliosis. Dictated by: Geetha Elkins MD, PhD on 07/25/2021 at 12:38 Approved by: Geetha Elkins MD, PhD on 07/25/2021 at 12:44
== END ==
PROVIDERS: PCP Internal Medicine; Referring Provider Internal Medicine; Visit Provider Family Medicine
DX: M51.36 Other intervertebral disc degeneration, lumbar region (principal); M48.56XA Collapsed vertebra, not elsewhere classified, lumbar region, initial encounter for fracture; M51.37 Other intervertebral disc degeneration, lumbosacral region; M47.816 Spondylosis without myelopathy or radiculopathy, lumbar region; M47.817 Spondylosis without myelopathy or radiculopathy, lumbosacral region; M48.061 Spinal stenosis, lumbar region without neurogenic claudication; M48.07 Spinal stenosis, lumbosacral region; M51.26 Other intervertebral disc displacement, lumbar region; M41.86 Other forms of scoliosis, lumbar region
CPT/HCPCS: 72148

== ENCOUNTER → 2021-08-20 11:33 | Outpatient (CLI) | payer MEDICARE, BC, OTHER, SELFPAY ==
[2021-08-20 14:15] LABS: TSH w/ Reflex to FT4 4.58 uIU/mL (0.47-4.68)
== END ==
PROVIDERS: PCP Internal Medicine; Referring Provider Internal Medicine; Visit Provider Internal Medicine
DX: E03.9 Hypothyroidism, unspecified (principal)
CPT/HCPCS: 36415; 84443

== ENCOUNTER → 2021-11-11 11:06 | Outpatient (CLI) | payer MEDICARE, BC, OTHER, SELFPAY ==
[2021-11-11 12:52] LABS: Hematocrit 46.4 % (41-53); Hemoglobin 16.2 g/dL (13.5-17.5); Mean Corpuscular Hemoglobin 31.3 PG (26-34); Mean Corpuscular Volume 89.5 fL (80-100); Platelet Count 83 X10^3/uL (150-400); Red Blood Cell Count 5.18 X10^6/uL (4.5-5.9); Red Cell Distribution Width 15.1 % (11.6-14.8); White Blood Cell Count 5.3 X10^3/uL (4.5-11.0)
[2021-11-11 13:25] LABS: Alanine Aminotransferase 27 IU/L (<50); Albumin 4.8 g/dL (3.5-5.0); Albumin Globulin Ratio 1.5 (1.0-2.8); Alkaline Phosphatase 65 U/L (38-126); Aspartate Aminotransferase 33 IU/L (17-59); BUN Creatinine Ratio 12.1 (6-22); Blood Urea Nitrogen 14 mg/dL (9-20); Calcium 9.8 mg/dL (8.4-10.2); Carbon Dioxide 27 mmol/L (22-32); Chloride 102 mmol/L (98-107); Cholesterol 163 mg/dL (140-199); Estimated Glomerular Filt Rate > 60 mL/min (>60); Globulin 3.1 g/dL (1.7-4.1); Glucose 113 mg/dL (80-110); HDL Cholesterol 40 mg/dL (40-60); HEMOLYSIS < 15 (0-50); LDL Cholesterol Calculated 100 mg/dL (<100); Sodium 139 mmol/L (137-145); Total Protein 7.9 g/dL (6.3-8.2); Triglycerides 113 mg/dL (35-150); Uric Acid 4.9 mg/dL (3.5-8.5)
[2021-11-11 13:55] LABS: Testosterone 1040 ng/dL (71.8-623)
== END ==
PROVIDERS: PCP Internal Medicine; Referring Provider Internal Medicine; Visit Provider Internal Medicine
DX: M10.9 Gout, unspecified (principal); E03.9 Hypothyroidism, unspecified; E78.2 Mixed hyperlipidemia; I10 Essential (primary) hypertension; Z12.5 Encounter for screening for malignant neoplasm of prostate
CPT/HCPCS: 36415; 80053; 80061; 84153; 84403; 84550; 85027

== ENCOUNTER → 2022-02-21 12:27 | Outpatient (CLI) | payer MEDICARE, BC, OTHER, SELFPAY ==
[2022-02-21 14:13] LABS: Hemoglobin A1C% w Est Avg Glu 5.6 % (4.0-6.0)
[2022-02-21 14:39] LABS: Testosterone 940 ng/dL (71.8-623)
== END ==
PROVIDERS: PCP Internal Medicine; Referring Provider Internal Medicine; Visit Provider Internal Medicine
DX: R79.89 Other specified abnormal findings of blood chemistry (principal); R73.01 Impaired fasting glucose
CPT/HCPCS: 36415; 83036; 84403

== ENCOUNTER → 2022-06-03 14:08 | Outpatient (CLI) | payer MEDICARE, BC, OTHER, SELFPAY ==
[2022-06-03 14:52] LABS: Hematocrit 44.4 % (41-53); Hemoglobin 15.4 g/dL (13.5-17.5); Mean Corpuscular HGB Conc 34.7 % (30-36); Mean Corpuscular Hemoglobin 31.7 PG (26-34); Mean Corpuscular Volume 91.4 fL (80-100); Platelet Count 93 X10^3/uL (150-400); Red Blood Cell Count 4.87 X10^6/uL (4.5-5.9); Red Cell Distribution Width 13.3 % (11.6-14.8)
[2022-06-03 14:59] LABS: Hemoglobin A1C% w Est Avg Glu 5.6 % (4.0-6.0)
[2022-06-03 15:04] LABS: Alanine Aminotransferase 29 IU/L (<50); Albumin 4.7 g/dL (3.5-5.0); Albumin Globulin Ratio 1.6 (1.0-2.8); Alkaline Phosphatase 59 U/L (38-126); Aspartate Aminotransferase 29 IU/L (17-59); BUN Creatinine Ratio 17.2 (6-22); Bilirubin Total 0.7 mg/dL (0.2-1.3); Blood Urea Nitrogen 16 mg/dL (9-20); Calcium 9.3 mg/dL (8.4-10.2); Carbon Dioxide 27 mmol/L (22-32); Chloride 101 mmol/L (98-107); Estimated Glomerular Filt Rate > 60 mL/min (>60); Globulin 2.9 g/dL (1.7-4.1); Glucose 106 mg/dL (80-110); HEMOLYSIS < 15 (0-50); Magnesium 2.3 mg/dL (1.6-2.3); Potassium 4.2 mmol/L (3.4-5.1); Sodium 140 mmol/L (137-145); Total Protein 7.6 g/dL (6.3-8.2)
[2022-06-03 15:16] LABS: Appearance Urine UA CLEAR; Bilirubin Urine UA NEGATIVE (NEGATIVE); Color Urine UA YELLOW; Glucose Urine UA NEGATIVE (Negative); Ketones Urine UA NEGATIVE (NEGATIVE); Leukocyte Esterase Urine UA NEGATIVE (NEGATIVE); Nitrite Urine UA NEGATIVE (Negative); Occult Blood Urine UA NEGATIVE (Negative); Protein Urine UA NEGATIVE (Negative); Specific Gravity Urine UA <=1.005 (1.000-1.035); Urobilinogen Urine UA 0.2 E.U./dL (0.2); pH Urine UA 5.5 (4.5-8.0)
[2022-06-03 15:19] LABS: Bacteria Urine None Seen; Culture Indicated Urine Cult Not Indicated; RBC Urine None Seen (0-5/HPF); Squamous Epithelial Cell Urine None Seen (0-5/HPF); WBC Urine None Seen (0-5/HPF)
[2022-06-03 15:33] LABS: Prostate Specific Antigen 1.54 ng/mL (0.10-4.00)
[2022-06-03 15:35] LABS: Testosterone 273 ng/dL (71.8-623)
== END ==
PROVIDERS: PCP Internal Medicine; Referring Provider Internal Medicine; Visit Provider Internal Medicine
DX: E03.9 Hypothyroidism, unspecified (principal); N40.1 Benign prostatic hyperplasia with lower urinary tract symptoms; N13.8 Other obstructive and reflux uropathy; I10 Essential (primary) hypertension; E83.42 Hypomagnesemia; R73.01 Impaired fasting glucose
CPT/HCPCS: 36415; 80053; 81001; 83036; 83735; 84153; 84403; 85027

== ENCOUNTER → 2022-06-03 14:30 | Outpatient (CLI) | payer MEDICARE, BC, OTHER, SELFPAY ==
--- NOTE | 2022-06-03 14:32 | DI.RAD.S_ITS ---
PROCEDURE: XR TOE LT MIN 2V INDICATIONS: left big toe pain TECHNIQUE: 3 views of the left 1st toe(s) acquired. COMPARISON: None. FINDINGS: Bones: No fractures or dislocations. No suspicious bony lesions. 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 No osseous erosions. No periosteal reaction. Soft tissues: No suspicious soft tissue densities. 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 Dictated by: Geetha Elkins MD, PhD on 06/03/2022 at 15:17 Approved by: Geetha Elkins MD, PhD on 06/03/2022 at 15:18
== END ==
PROVIDERS: PCP Internal Medicine; Referring Provider Internal Medicine; Visit Provider Internal Medicine
DX: M19.072 Primary osteoarthritis, left ankle and foot (principal); M79.675 Pain in left toe(s); E03.9 Hypothyroidism, unspecified; N40.1 Benign prostatic hyperplasia with lower urinary tract symptoms; N13.8 Other obstructive and reflux uropathy; I10 Essential (primary) hypertension; E83.42 Hypomagnesemia; R73.01 Impaired fasting glucose
CPT/HCPCS: 36415; 73660; 80053; 81001; 83036; 83735; 84153; 84403; 85027

== ENCOUNTER → 2022-11-25 11:13 | Outpatient (CLI) | payer MEDICARE, BC, OTHER, SELFPAY ==
[2022-11-25 12:18] LABS: Hemoglobin 15.3 g/dL (13.5-17.5); Mean Corpuscular HGB Conc 34.8 % (30-36); Mean Corpuscular Hemoglobin 32.4 PG (26-34); Mean Corpuscular Volume 93.2 fL (80-100); Platelet Count 111 X10^3/uL (150-400); Red Blood Cell Count 4.72 X10^6/uL (4.5-5.9); Red Cell Distribution Width 13.4 % (11.6-14.8); White Blood Cell Count 5.2 X10^3/uL (4.5-11.0)
[2022-11-25 12:19] LABS: Hemoglobin A1C% w Est Avg Glu 5.3 % (4.0-6.0)
[2022-11-25 12:42] LABS: Alanine Aminotransferase 31 IU/L (<50); Albumin 4.6 g/dL (3.5-5.0); Albumin Globulin Ratio 1.6 (1.0-2.8); Alkaline Phosphatase 55 U/L (38-126); Aspartate Aminotransferase 29 IU/L (17-59); BUN Creatinine Ratio 19.4 (6-22); Bilirubin Total 0.5 mg/dL (0.2-1.3); Blood Urea Nitrogen 19 mg/dL (9-20); Calcium 9.7 mg/dL (8.4-10.2); Carbon Dioxide 28 mmol/L (22-32); Chloride 104 mmol/L (98-107); Cholesterol 155 mg/dL (140-199); Estimated Glomerular Filt Rate > 60 mL/min (>60); Globulin 2.8 g/dL (1.7-4.1); Glucose 111 mg/dL (80-110); HDL Cholesterol 39 mg/dL (40-60); HEMOLYSIS < 15 (0-50); LDL Cholesterol Calculated 95 mg/dL (<100); Potassium 3.9 mmol/L (3.4-5.1); Sodium 140 mmol/L (137-145); Total Protein 7.4 g/dL (6.3-8.2); Triglycerides 106 mg/dL (35-150)
[2022-11-25 13:06] LABS: TSH w/ Reflex to FT4 6.54 uIU/mL (0.47-4.68)
[2022-11-25 13:10] LABS: Prostate Specific Antigen 1.62 ng/mL (0.10-4.00)
[2022-11-25 13:12] LABS: Testosterone 423 ng/dL (71.8-623)
[2022-11-25 13:37] LABS: Free T4, Direct Thyroxine 1.37 ng/dL (0.78-2.19)
== END ==
PROVIDERS: PCP Internal Medicine; Referring Provider Internal Medicine; Visit Provider Internal Medicine
DX: E78.2 Mixed hyperlipidemia (principal); R73.01 Impaired fasting glucose; I10 Essential (primary) hypertension; E03.9 Hypothyroidism, unspecified
CPT/HCPCS: 36415; 80053; 80061; 83036; 84153; 84403; 84439; 84443; 85027

== ENCOUNTER → 2023-02-17 13:02 | Outpatient (CLI) | payer MEDICARE, BC, OTHER, SELFPAY ==
[2023-02-17 14:24] LABS: Hematocrit 42.4 % (41-53); Hemoglobin 14.7 g/dL (13.5-17.5); Mean Corpuscular HGB Conc 34.7 % (30-36); Mean Corpuscular Hemoglobin 32.4 PG (26-34); Mean Corpuscular Volume 93.5 fL (80-100); Platelet Count 125 X10^3/uL (150-400); Red Blood Cell Count 4.54 X10^6/uL (4.5-5.9); Red Cell Distribution Width 13.2 % (11.6-14.8); White Blood Cell Count 5.4 X10^3/uL (4.5-11.0)
[2023-02-17 14:38] LABS: BUN Creatinine Ratio 21.2 (6-22); Blood Urea Nitrogen 21 mg/dL (9-20); Calcium 10.2 mg/dL (8.4-10.2); Carbon Dioxide 27 mmol/L (22-32); Chloride 103 mmol/L (98-107); Estimated Glomerular Filt Rate > 60 mL/min (>60); Glucose 109 mg/dL (80-110); HEMOLYSIS 22 (0-50); Potassium 4.4 mmol/L (3.4-5.1); Sodium 138 mmol/L (137-145)
[2023-02-17 15:07] LABS: Testosterone 220 ng/dL (71.8-623)
== END ==
PROVIDERS: PCP Internal Medicine; Referring Provider Internal Medicine; Visit Provider Internal Medicine
DX: E78.2 Mixed hyperlipidemia (principal); I10 Essential (primary) hypertension
CPT/HCPCS: 36415; 80048; 84403; 84443; 85027

== ENCOUNTER → 2023-05-27 11:25 | Outpatient (CLI) | payer MEDICARE, BC, OTHER, SELFPAY ==
[2023-05-27 12:17] LABS: Hematocrit 44.2 % (41-53); Hemoglobin 15.5 g/dL (13.5-17.5); Mean Corpuscular Hemoglobin 32.6 PG (26-34); Mean Corpuscular Volume 93.2 fL (80-100); Platelet Count 113 X10^3/uL (150-400); Red Blood Cell Count 4.74 X10^6/uL (4.5-5.9); Red Cell Distribution Width 13.4 % (11.6-14.8); White Blood Cell Count 5.8 X10^3/uL (4.5-11.0)
[2023-05-27 12:34] LABS: Alanine Aminotransferase 41 IU/L (<50); Albumin 4.7 g/dL (3.5-5.0); Albumin Globulin Ratio 1.6 (1.0-2.8); Alkaline Phosphatase 55 U/L (38-126); Aspartate Aminotransferase 31 IU/L (17-59); BUN Creatinine Ratio 17.7 (6-22); Bilirubin Total 0.8 mg/dL (0.2-1.3); Blood Urea Nitrogen 17 mg/dL (9-20); Calcium 9.7 mg/dL (8.4-10.2); Carbon Dioxide 26 mmol/L (22-32); Chloride 102 mmol/L (98-107); Estimated Glomerular Filt Rate > 60 mL/min (>60); Glucose 122 mg/dL (80-110); HEMOLYSIS < 15 (0-50); Potassium 4.1 mmol/L (3.4-5.1); Sodium 142 mmol/L (137-145); Total Protein 7.7 g/dL (6.3-8.2)
[2023-05-27 13:05] LABS: Prostate Specific Antigen 1.56 ng/mL (0.10-4.00); TSH w/ Reflex to FT4 6.57 uIU/mL (0.47-4.68)
[2023-05-27 13:31] LABS: Free T4, Direct Thyroxine 1.09 ng/dL (0.78-2.19)
== END ==
LOC: LAB 11:27
PROVIDERS: PCP Internal Medicine; Referring Provider Internal Medicine; Visit Provider Internal Medicine
DX: N40.1 Benign prostatic hyperplasia with lower urinary tract symptoms (principal); I10 Essential (primary) hypertension; N13.8 Other obstructive and reflux uropathy; E03.9 Hypothyroidism, unspecified
CPT/HCPCS: 36415; 80053; 84153; 84439; 84443; 85027

== ENCOUNTER → 2023-06-26 16:45 | Outpatient (CLI) | payer MEDICARE, BC, OTHER, SELFPAY ==
--- NOTE | 2023-06-26 16:49 | DI.MRI.S_ITS ---
PROCEDURE: MR LUMBAR SPINE WO CON INDICATIONS: Dorsalgia TECHNIQUE: Noncontrast sagittal T1 spin echo and T2 fast echo, sagittal STIR, and T2 fast spin echo through the lumbar spine. In cases with scoliosis, additional coronal T2 fast spin echo may be performed. COMPARISON: [facility], MR, MR LUMBAR SPINE WO CON, 07/25/2021, 11:17. FINDINGS: Image quality: Excellent. Alignment and Curvature: Alignment is unchanged Bone Marrow: Chronic L1 compression fracture remains unchanged. There is partial sacralization of the L5 vertebral body. Remainder of the marrow signal unremarkable Spinal Cord: Conus medullaris terminates at the L1 level. Visualized cord demonstrates normal signal and size. Paraspinous Soft Tissues: No paravertebral masses. T12-L1: Disc space narrowing with broad-based disc bulge. Mild central and no foraminal stenosis L1-L2: Disc space narrowing with disc bulge. Mild central stenosis. Mild bilateral foraminal stenosis L2-L3: Disc space narrowing and circumferential disc bulge with hypertrophic facet joints. Mild central and bilateral foraminal stenosis L3-L4: Disc space is maintained. Disc bulge and hypertrophic facet joints combined with ligamentum flavum laxity results in severe central stenosis. No foraminal stenosis. L4-L5: Disc space narrowing, hypertrophic facet joints and disc bulge combined result in severe central stenosis. Severe right and mild left foraminal stenosis L5-S1: Disc space narrowing and posterior disc bulge. No central stenosis. Severe left and moderate right foraminal stenosis IMPRESSION: Multilevel degenerative disc disease and arthropathy results in varying degrees of central and foraminal stenosis including severe central stenosis L3-4 and L4-5, increased from the prior Approved by: Balwinder Bellamy M.D. on 06/29/2023 at 17:57
== END ==
PROVIDERS: PCP Internal Medicine; Referring Provider Internal Medicine; Visit Provider Internal Medicine
DX: M51.36 Other intervertebral disc degeneration, lumbar region; M51.37 Other intervertebral disc degeneration, lumbosacral region; M47.816 Spondylosis without myelopathy or radiculopathy, lumbar region; M47.817 Spondylosis without myelopathy or radiculopathy, lumbosacral region; M48.061 Spinal stenosis, lumbar region without neurogenic claudication; M48.07 Spinal stenosis, lumbosacral region; M54.9 Dorsalgia, unspecified; G89.29 Other chronic pain
CPT/HCPCS: 72148

== ENCOUNTER → 2023-08-18 11:12 | Outpatient (CLI) | payer MEDICARE, BC, OTHER, SELFPAY ==
[2023-08-18 13:17] LABS: Hematocrit 45.4 % (41-53); Hemoglobin 15.6 g/dL (13.5-17.5); Mean Corpuscular HGB Conc 34.4 % (30-36); Mean Corpuscular Hemoglobin 31.5 PG (26-34); Mean Corpuscular Volume 91.5 fL (80-100); Platelet Count 106 X10^3/uL (150-400); Red Blood Cell Count 4.96 X10^6/uL (4.5-5.9); Red Cell Distribution Width 13.1 % (11.6-14.8); White Blood Cell Count 6.7 X10^3/uL (4.5-11.0)
[2023-08-18 13:33] LABS: Alanine Aminotransferase 43 IU/L (<50); Albumin 4.9 g/dL (3.5-5.0); Albumin Globulin Ratio 1.8 (1.0-2.8); Alkaline Phosphatase 60 U/L (38-126); Aspartate Aminotransferase 33 IU/L (17-59); Bilirubin Total 0.7 mg/dL (0.2-1.3); Blood Urea Nitrogen 11 mg/dL (9-20); Calcium 9.6 mg/dL (8.4-10.2); Carbon Dioxide 27 mmol/L (22-32); Chloride 106 mmol/L (98-107); Estimated Glomerular Filt Rate > 60 mL/min (>60); Globulin 2.7 g/dL (1.7-4.1); Glucose 138 mg/dL (80-110); HEMOLYSIS < 15 (0-50); Sodium 139 mmol/L (137-145); Total Protein 7.6 g/dL (6.3-8.2)
[2023-08-18 14:23] LABS: Testosterone 424 ng/dL (71.8-623)
== END ==
LOC: LAB 11:13
PROVIDERS: PCP Internal Medicine; Referring Provider Internal Medicine; Visit Provider Internal Medicine
DX: R73.01 Impaired fasting glucose (principal); E03.9 Hypothyroidism, unspecified
CPT/HCPCS: 36415; 80053; 83036; 84403; 84443; 85027

== ENCOUNTER 2024-01-15 13:11 | Emergency (ER) | payer MEDICARE, BC, OTHER, SELFPAY ==
[2024-01-15 13:18] VITALS: BP 139/77; PULSE 58; RESP 17; TEMP 36.6; O2SAT 100; BMI 26.6
--- NOTE | 2024-01-15 13:25 | DI.RAD.S_ITS ---
PROCEDURE: XR CHEST 1V INDICATIONS: poss aspiration TECHNIQUE: One view of the chest was acquired. COMPARISON: None. FINDINGS: Surgical changes and devices: None. Lungs and pleura: Lungs are clear. No pleural effusions or pneumothorax. Mediastinum: Mediastinal contours appear normal. Heart size is normal. Bones and chest wall: No suspicious bony lesions. Overlying soft tissues appear unremarkable. IMPRESSION: No acute pulmonary process. Dictated by: Bre Sterling M.D. on 01/15/2024 at 14:32 Approved by: Bre Sterling M.D. on 01/15/2024 at 14:32
--- NOTE | 2024-01-15 16:26 | ED.SOB ---
HPI - SOB/Dyspnea <Adelaida Loco PA-C - Last Filed: 01/15/24 17:00> General Chief Complaint: Shortness of Breath/Dyspnea Stated Complaint: Aspirated A Supplement Capsule Time Seen by Provider: 01/15/24 16:26 Source: patient Mode of arrival: Ambulatory History of Present Illness HPI Narrative: Patient is a very pleasant 78-year-old male that presents to the emergency room department stay on the behest of his insurance nurse hotline. Patient this morning was taken his supplements, his 1st pill of the morning, he feels as if he aspirated into his lungs. He called the nurse hotline and discussed the supplement that he thinks he aspirated. He told the nurse that he was having a burning sensation in his lungs, was having profuse coughing fits, felt short of breath, and felt like he could not catch his breath. He was instructed to present to the emergency room department. Patient came into the emergency department with those complaints. Since he has been waiting his symptoms have almost totally dissipated. The patient has no other physical complaints. Related Data Home Medications Medication Instructions Recorded Confirmed esomeprazole magnesium 20 mg 20 mg PO DAILY 09/12/20 12/10/23 capsule,delayed release (Nexium) colchicine 0.6 mg tablet 0.6 mg PO DAILY PRN 08/05/21 12/10/23 magnesium citrate,mag oxide 80 mg PO DAILY 05/30/22 12/10/23 nicotinamide riboside hydrogen 2 cap PO DAILY 02/17/23 12/10/23 malate Previous Rx's Medication Instructions Recorded triamcinolone acetonide 0.1 % 1 applic topical DAILY PRN skin 10/16/21 topical ointment irritation #80 grams levothyroxine 137 mcg tablet 137 mcg PO DAILY #90 tabs 05/28/23 omega-3 acid ethyl esters 1 gram 2 cap PO BID #360 caps 08/27/23 capsule testosterone 12.5 mg/1.25 gram per 4 pump transdermal DAILY #450 grams 10/07/23 pump actuation (1%) transdermal gel allopurinol 300 mg tablet 300 mg PO DAILY #90 tabs 10/26/23 rosuvastatin 5 mg tablet (Crestor) 5 mg PO DAILY #90 tabs 11/11/23 sildenafil 50 mg tablet 100 mg (2 x 50 mg) PO DAILY PRN 12/15/23 sexual activity #26 tabs lisinopril 5 mg tablet 5 mg PO BID #180 tabs 12/28/23 Allergies Allergy/AdvReac Type Severity Reaction Status Date / Time ibuprofen AdvReac Rash Verified 01/15/24 13:18 Review of Systems <Adelaida Loco PA-C - Last Filed: 01/15/24 17:00> Review of Systems Narrative: Negative except as above Respiratory Comments: Sensations of burning in his lungs, concern for aspiration of a pill, shortness of breath, Patient History <Adelaida Loco PA-C - Last Filed: 01/15/24 17:00> Medical History Thrombocytopenia Osteoarthritis of left hip Ganglion cyst of finger of right hand Pain of left great toe BPH w urinary obs/LUTS Impaired fasting glucose Family history of Alzheimer's disease Erectile dysfunction History of colon polyps Acquired hypothyroidism Mixed hyperlipidemia Essential hypertension Primary osteoarthritis involving multiple joints Back pain, chronic Eczema (~2016) Gout (~2009) Fractures (~2014) Mumps (~1952) Measles (~1952) Chicken pox (~1952) Anemia (~2020) Hearing loss (~2019) Hemorrhoid (~2020) Skin cancer (~2014) Acid reflux Fatty liver Elevated uric acid in blood Hypogonadism Lower gastrointestinal hemorrhage Surgical History Anesthesia History of endoscopy Hx of vasectomy (~1982) Hx of tonsillectomy (~1952) Family History Father Hypertension Heart disease Stroke Skin cancer Grandmother Diabetes mellitus Mother Alzheimer's disease Diverticulosis Sister GI disease Diverticulosis Sister Diabetes mellitus Grandfather Heart disease Grandmother Diabetes mellitus Grandfather Cancer Grandmother Stroke Social History marital status: details: retired [employer], [employer], 1 grown daughter household members: spouse occupational status: previously employed Smoking Status: Never smoker alcohol intake: current substance use type: does not use Smoking Status: Never smoker alcohol intake frequency: a few times a month Substance Use Type: does not use Exam <Adelaida Loco PA-C - Last Filed: 01/15/24 17:00> Initial Vital Signs Initial Vital Signs: Vital Signs Temperature 97.8 F 01/15/24 13:18 Pulse Rate 58 L 01/15/24 13:18 Respiratory Rate 17 01/15/24 13:18 Blood Pressure 139/77 01/15/24 13:18 Pulse Oximetry 100 01/15/24 13:18 Oxygen Delivery Method Room Air 01/15/24 13:18 Const General: cooperative, healthy appearing, comfortable, well developed, well groomed, No acute distress, No in distress and No anxious Nutritional Appearance: average body habitus and well nourished Eyes General: Yes appearance normal, both eyes and all related structures Pupils: PERRL EOM: EOM intact bilaterally Resp Effort & Inspection: normal respiratory effort, able to speak in complete sentences, normal respiratory pattern, no audible wheezes, cough, respiratory effort not decreased, no grunting, not labored, no nasal flaring, no paradoxical thoraco-abdom movements, no pursed lip breathing, no respiratory distress, no retractions, no segmental paradox chest wall movement, no stridor, not tachypneic, no tracheal deviation, no tripod positioning, no use of accessory muscles, No prolonged expiratory phase and symmetric chest movement Auscultation: clear to auscultation bilaterally, breath sounds present, no bronchial breath sounds, no bronchovesicular breath sounds, no crackles, lung sounds not diminished, no rales, no rhonchi, no wheezes, no rubs and no vesicular sounds Tactile Fremitus: tactile fremitus absent Cardio Rate: regular rate Rhythm: regular rhythm Heart Sounds: S1 normal and S2 normal Skin Other: Warm pink and dry Neuro Other: Cranial nerves are grossly intact Extrem Other: Range of motion, strength, pulses, cap refill preserved in the upper and lower extremities Psych Other: Appearance, mental status, speech, movement, mood, affect, energy, thought process, thought content, judgment are all intact <Lukas Wood MD - Last Filed: 01/15/24 21:08> Initial Vital Signs Initial Vital Signs: Vital Signs Temperature 97.8 F 01/15/24 13:18 Pulse Rate 58 L 01/15/24 13:18 Respiratory Rate 17 01/15/24 13:18 Blood Pressure 139/77 01/15/24 13:18 Pulse Oximetry 100 01/15/24 13:18 Oxygen Delivery Method Room Air 01/15/24 13:18 Scores <Adelaida Loco PA-C - Last Filed: 01/15/24 17:00> GCS Citation: 15 Course <Adelaida Loco PA-C - Last Filed: 01/15/24 17:00> Orders Ordered: ED Orders 01/15/24 13:25 XR chest 1V Stat Vital Signs Vital signs: Vital Signs - 8 hr 01/15/24 13:18 01/15/24 16:49 Temperature 97.8 F Pulse Rate 58 L 56 L Respiratory Rate 17 17 Blood Pressure 139/77 127/76 Pulse Oximetry 100 100 Oxygen Delivery Method Room Air Room Air Reviewed <Lukas Wood MD - Last Filed: 01/15/24 21:08> Orders Ordered: ED Orders 01/15/24 13:25 XR chest 1V Stat Vital Signs Vital signs: Vital Signs - 8 hr 01/15/24 13:18 01/15/24 16:49 Temperature 97.8 F Pulse Rate 58 L 56 L Respiratory Rate 17 17 Blood Pressure 139/77 127/76 Pulse Oximetry 100 100 Oxygen Delivery Method Room Air Room Air MDM - SOB/Dyspnea <Adelaida Loco PA-C - Last Filed: 01/15/24 17:00> Imaging Data Chest x-ray: Radiologist's Impression: [place] [address] XRay Report Signed Patient: Yao Bolivar MR#: [id number] : 1945 Acct:[id number] Age/Sex: 78 / M Date of Service: 01/15/24 Loc: ED Accession Number: [id number] Procedure: XR chest 1V Ordering Provider: Lukas Wood MD PROCEDURE: XR CHEST 1V INDICATIONS: poss aspiration TECHNIQUE: One view of the chest was acquired. COMPARISON: None. FINDINGS: Surgical changes and devices: None. Lungs and pleura: Lungs are clear. No pleural effusions or pneumothorax. Mediastinum: Mediastinal contours appear normal. Heart size is normal. Bones and chest wall: No suspicious bony lesions. Overlying soft tissues appear unremarkable. IMPRESSION: No acute pulmonary process. Dictated by: Bre Sterling M.D. on 01/15/2024 at 14:32 Approved by: Bre Sterling M.D. on 01/15/2024 at 14:32 [facility] Narrative Medical decision making narrative: Pleasant 78-year-old male presented to the emergency room department today behest of the insurance on-call nurse, possible aspiration of 1 of his supplements this morning, patient states that he knows that he aspirated the partial capsule down into his lungs, he was able to cough most of the capsule and. Research the supplement, it does cause some burning when broken down. Having a burning sensation in his lungs, was coughing quite a bit, currently at this time the burning sensation has improved the coughing is slowly improving. The patient thinks that he is going to be all right. Advised him that his chest x-ray is normal. Patient would like to be discharged feels that he is improving. Was just looking for reassurance. Patient discharged. Differential diagnosis possible aspiration of the supplementation. Discharge Plan Departure Patient Disposition: Home Clinical Impression: Burning sensation Activity Restrictions/Additional Instructions: Chest x-ray is negative, Your exam is negative for any signs of airway narrowing Currently at this time I then your safe to be discharged home Return in the emergency department as needed Follow up with her primary care doctor Prescriptions: No Action triamcinolone acetonide 0.1 % ointment 1 applic topical DAILY MDD once daily PRN (Reason: skin irritation) Qty: 80 0RF Rx Instructions: Skin irritation on calves and elbows. levothyroxine 137 mcg tablet 137 mcg PO DAILY Qty: 90 3RF omega-3 acid ethyl esters 1 gram capsule 2 cap PO BID Qty: 360 3RF testosterone 12.5 mg/ 1.25 gram (1 %) gel in metered-dose pump 4 pump transdermal DAILY Qty: 450 3RF Rx Instructions: 12.5 mg/1.25 gram (1%) gel in metered dose pump rosuvastatin [Crestor] 5 mg tablet 5 mg PO DAILY Qty: 90 3RF sildenafil 50 mg tablet 100 mg PO DAILY PRN (Reason: sexual activity) Qty: 26 0RF lisinopril 5 mg tablet 5 mg PO BID Qty: 180 3RF nicotinamide riboside hydrogen malate 2 cap PO DAILY Rx Instructions: 415 mg nicotinamide riboside hydrogen malate. 85 mg Betaine Anhydrous(Trimethglycine). allopurinol 300 mg tablet 300 mg PO DAILY Qty: 90 3RF colchicine 0.6 mg tablet 0.6 mg PO DAILY PRN Patient Comments: take 1 tablet by mouth once daily if needed for GOUT ATTACK magnesium citrate,mag oxide 80 mg PO DAILY esomeprazole magnesium [Nexium] 20 mg capsule,delayed release(DR/EC) 20 mg PO DAILY Referrals: Fernando Merino MD [Primary Care Provider] - Stand Alone Forms: Patient Portal/API ED Sign-out <Lukas Wood MD - Last Filed: 01/15/24 21:08> Cosign ED Attending Cosignature Attestation: I was immediately available in the department for consultation. This documentation has been reviewed. Lukas Wood MD
[2024-01-15 16:49] VITALS: BP 127/76; PULSE 56; RESP 17; O2SAT 100
== END 2024-01-15 16:51 | disposition home or self-care (01) ==
PROVIDERS: Emergency Provider Physician Assistant; PCP Internal Medicine
DX: R20.8 Other disturbances of skin sensation (principal); T18.9XXA Foreign body of alimentary tract, part unspecified, initial encounter
CPT/HCPCS: 71045; 99281; 99283

== ENCOUNTER → 2024-05-17 14:04 | Outpatient (CLI) | payer MEDICARE, OTHER, SELFPAY ==
[2024-05-17 15:44] LABS: Hemoglobin A1C% w Est Avg Glu 5.6 % (4.0-6.0)
[2024-05-17 15:48] LABS: Aspartate Aminotransferase 30 IU/L (17-59); BUN Creatinine Ratio 20.6 (6-22); Blood Urea Nitrogen 21 mg/dL (9-20); Calcium 9.9 mg/dL (8.4-10.2); Carbon Dioxide 27 mmol/L (22-32); Chloride 101 mmol/L (98-107); Cholesterol 152 mg/dL (140-199); Estimated Glomerular Filt Rate > 60 mL/min (>60); Glucose 98 mg/dL (80-110); HDL Cholesterol 37 mg/dL (40-60); HEMOLYSIS < 15 (0-50); LDL Cholesterol Calculated 71 mg/dL (<100); Potassium 4.4 mmol/L (3.4-5.1); Sodium 138 mmol/L (137-145); Triglycerides 222 mg/dL (35-150); Uric Acid 4.3 mg/dL (3.5-8.5)
[2024-05-17 16:19] LABS: TSH w/ Reflex to FT4 1.98 uIU/mL (0.47-4.68)
== END ==
PROVIDERS: PCP Internal Medicine; Referring Provider Internal Medicine; Visit Provider Internal Medicine
DX: R73.01 Impaired fasting glucose (principal); E78.2 Mixed hyperlipidemia; N40.1 Benign prostatic hyperplasia with lower urinary tract symptoms; N13.8 Other obstructive and reflux uropathy; M10.9 Gout, unspecified
CPT/HCPCS: 36415; 80048; 80061; 83036; 84443; 84450; 84550

== ENCOUNTER → 2024-12-26 10:41 | Outpatient (CLI) | payer MEDICARE, BC, OTHER, SELFPAY ==
[2024-12-26 12:27] LABS: Hematocrit 47.6 % (41-53); Hemoglobin 16.3 g/dL (13.5-17.5); Mean Corpuscular HGB Conc 34.2 % (30-36); Mean Corpuscular Hemoglobin 30.7 PG (26-34); Mean Corpuscular Volume 89.6 fL (80-100); Platelet Count 84 X10^3/uL (150-400)
[2024-12-26 12:38] LABS: Hemoglobin A1C% w Est Avg Glu 6.1 % (4.0-6.0)
[2024-12-26 13:02] LABS: Blood Urea Nitrogen 16 mg/dL (9-20); Calcium 9.6 mg/dL (8.4-10.2); Carbon Dioxide 26 mmol/L (22-32); Chloride 101 mmol/L (98-107); Estimated Glomerular Filt Rate > 60 mL/min (>60); Glucose 118 mg/dL (70-99); HEMOLYSIS < 15 (0-50); Potassium 4.1 mmol/L (3.4-5.1); Sodium 139 mmol/L (137-145)
[2024-12-26 13:32] LABS: Prostate Specific Antigen 3.90 ng/mL (0.10-4.00)
[2024-12-26 13:39] LABS: TSH w/ Reflex to FT4 4.52 uIU/mL (0.47-4.68)
== END ==
PROVIDERS: PCP Internal Medicine; Referring Provider Internal Medicine; Visit Provider Internal Medicine
DX: R73.01 Impaired fasting glucose (principal); N40.1 Benign prostatic hyperplasia with lower urinary tract symptoms; E78.2 Mixed hyperlipidemia; N13.8 Other obstructive and reflux uropathy
CPT/HCPCS: 36415; 80048; 83036; 84153; 84403; 84443; 85027

== ENCOUNTER → 2025-01-25 11:05 | Outpatient (CLI) | payer MEDICARE, BC, OTHER, SELFPAY ==
[2025-01-25 11:45] LABS: Hematocrit 46.5 % (41-53); Hemoglobin 16.2 g/dL (13.5-17.5); Mean Corpuscular HGB Conc 34.9 % (30-36); Mean Corpuscular Hemoglobin 31.0 PG (26-34); Mean Corpuscular Volume 88.7 fL (80-100); Platelet Count 76 X10^3/uL (150-400)
[2025-01-25 12:39] LABS: Alanine Aminotransferase 60 IU/L (<50); Albumin 4.7 g/dL (3.5-5.0); Albumin Globulin Ratio 1.7 (1.0-2.8); Alkaline Phosphatase 76 U/L (38-126); Blood Urea Nitrogen 19 mg/dL (9-20); Calcium 9.4 mg/dL (8.4-10.2); Carbon Dioxide 25 mmol/L (22-32); Chloride 99 mmol/L (98-107); Estimated Glomerular Filt Rate > 60 mL/min (>60); Globulin 2.7 g/dL (1.7-4.1); Glucose 121 mg/dL (70-99); HEMOLYSIS < 15 (0-50); Magnesium 2.2 mg/dL (1.6-2.3); Potassium 3.9 mmol/L (3.4-5.1); Sodium 136 mmol/L (137-145); Total Protein 7.4 g/dL (6.3-8.2)
[2025-01-25 13:09] LABS: TSH w/ Reflex to FT4 10.10 uIU/mL (0.47-4.68)
[2025-01-25 13:38] LABS: Free T4, Direct Thyroxine 1.49 ng/dL (0.78-2.19)
== END ==
PROVIDERS: PCP Internal Medicine; Referring Provider Internal Medicine; Visit Provider Internal Medicine
DX: R53.1 Weakness (principal); R53.83 Other fatigue; R79.0 Abnormal level of blood mineral; N40.1 Benign prostatic hyperplasia with lower urinary tract symptoms; N13.8 Other obstructive and reflux uropathy; R97.20 Elevated prostate specific antigen [PSA]; E03.9 Hypothyroidism, unspecified
CPT/HCPCS: 36415; 80053; 83735; 84153; 84154; 84439; 84443; 85027